=== PATIENT | male | born 1940 | race Caucasian/White ===

== ENCOUNTER 2017-12-10 18:42 | Inpatient (IN) | payer MEDICARE, OTHER ==
[2017-12-10] VITALS (9 sets, daily range): BP systolic 127–157; BP diastolic 60–70; PULSE 46–64; RESP 12–34; TEMP 98.1–99; O2SAT 95–100
[~2017-12-10] VITALS: Ht 170.2 cm; Wt 79.1 kg
--- NOTE | 2017-12-10 19:09 | PD ---
HPI Chief Complaint: Altered Mental Status Time Seen by Provider: 18:53 Travel History International Travel<30 days: No Contact w/Intl Traveler<30days: No Traveled to known affect area: No History of Present Illness HPI 77-year-old male presents to the emergency department via EMS for AMS. According to EMS, the patient was recently discharged from the hospital and was just restarted back on his chronic pain medications today including morphine and Percocet. According to EMS, he was admitted for medication overdose and was off his medications until today. I am unsure where he was admitted to. According to EMS, when awakened, he does answer questions appropriately. Family apparently arrived at the facility and wanted him transferred due to being lethargic. Moderate severity. PFSH Past Medical History Atrial Fibrillation: Yes Cancer: Yes (LUNG) Cardiovascular Problems: Yes (NSTEMI) COPD: Yes Dementia: Yes Diabetes: No Hypertension: Yes Medical other: Yes (CHRONIC PAIN) Pneumonia: Yes Tetanus Vaccination: Unknown Influenza Vaccination: No Past Surgical History Surgical History: Unable to Obtain Social History Alcohol Use: No Tobacco Use: No Substance Use: No Allergies-Medications (Allergen,Severity, Reaction): Coded Allergies: No Known Allergies (Verified Allergy, Unknown, 12/10/17) Reported Meds & Prescriptions Reported Meds & Active Scripts Active Reported Nitroglycerin SL (Nitroglycerin) 0.4 Mg Subl 0.4 Mg SL DIRECTED PRN ONE TABLET UNDER THE TONGUE NEEDED FOR CHEST PAIN, MAY REPEAT EVERY FIVE MINUTES FOR A TOTAL OF 3 DOSES OR CALL 911 IF NO RELIEF Ventolin Hfa 18 GM Inh (Albuterol Sulfate) 90 Mcg/Act Aer 2 Puff INH Q4-6H PRN Ms Contin (Morphine Sulfate) 15 Mg Tab 60 Mg PO BID Gabapentin 300 Mg Cap 300 Mg PO BID Cipro (Ciprofloxacin HCl) 500 Mg Tab 500 Mg PO BID Symbicort Inh (Budesonide/Formoterol Fumarate) 160-4.5 Mcg/Act Aero 2 Puff INH Q12HR Baclofen 20 Mg Tab 20 Mg PO BID Amiodarone (Amiodarone HCl) 200 Mg Tab 200 Mg PO BID Furosemide 40 Mg Tab 40 Mg PO BID Atorvastatin (Atorvastatin Calcium) 10 Mg Tab 10 Mg PO HS Colace (Docusate Sodium) 100 Mg Capsule 100 Mg PO BID Spiriva Handihaler (Tiotropium Inh) 18 Mcg Cap 18 Mcg INH DAILY 1 capsule = 18 mcg Miralax Powder (Polyethylene Glycol 3350 Powder) 17 Gm Powd 17 Gm PO DAILY Mix and dissolve one measuring cap-ful (17 grams) in water or juice. Namenda (Memantine) 10 Mg Tab 10 Mg PO DAILY Meloxicam 15 Mg Tab 15 Mg PO DAILY Amlodipine (Amlodipine Besylate) 5 Mg Tab 5 Mg PO DAILY Review of Systems Except as stated in HPI: all other systems reviewed are Neg Physical Exam Narrative GENERAL: Well-nourished, well-developed male patient, afebrile. Patient is lethargic, moans to noxious stimuli. SKIN: Focused skin assessment warm/dry. HEAD: Normocephalic. Atraumatic. EYES: No scleral icterus. No injection or drainage. Pupils 2mm, reactive NECK: Supple, trachea midline. No JVD or lymphadenopathy. CARDIOVASCULAR: Regular rate and rhythm without murmurs, gallops, or rubs. RESPIRATORY: Breath sounds equal bilaterally. No accessory muscle use. Lung sounds clear to auscultation. GASTROINTESTINAL: Abdomen soft, non-tender, nondistended. MUSCULOSKELETAL: No cyanosis, or edema. BACK: Nontender without obvious deformity. No CVA tenderness. Data Data Last Documented VS Vital Signs Date Time Temp Pulse Resp B/P (MAP) Pulse Ox O2 Delivery O2 Flow Rate FiO2 12/10/17 20:42 61 12 133/60 (84) 100 Nasal Cannula 2.00 12/10/17 18:46 98.1 Orders Orders Electrocardiogram (12/10/17 19:02) Complete Blood Count With Diff (12/10/17 19:02) Comprehensive Metabolic Panel (12/10/17 19:02) Prothrombin Time / Inr (Pt) (12/10/17 19:02) Act Partial Throm Time (Ptt) (12/10/17 19:02) Urinalysis - C+S If Indicated (12/10/17 19:02) Blood Glucose (12/10/17 19:02) Ecg Monitoring (12/10/17 19:02) Iv Access Insert/Monitor (12/10/17 19:02) Oximetry (12/10/17 19:02) Sodium Chloride 0.9% Flush (Ns Flush) (12/10/17 19:15) Naloxone Inj (Narcan Inj) (12/10/17 19:15) Thyroid Stimulating Hormone (12/10/17 19:13) Naloxone Inj (Narcan Inj) (12/10/17 19:45) Naloxone Inj (Narcan Inj) (12/10/17 20:00) Naloxone Inj (Narcan Inj) (12/10/17 20:00) Admit Order (Ed Use Only) (12/10/17 20:56) Labs Laboratory Tests Test 12/10/17 19:15 White Blood Count 10.9 TH/MM3 Red Blood Count 3.50 MIL/MM3 Hemoglobin 12.0 GM/DL Hematocrit 35.6 % Mean Corpuscular Volume 101.6 FL Mean Corpuscular Hemoglobin 34.1 PG Mean Corpuscular Hemoglobin Concent 33.6 % Red Cell Distribution Width 14.1 % Platelet Count 252 TH/MM3 Mean Platelet Volume 9.4 FL Neutrophils (%) (Auto) 76.6 % Lymphocytes (%) (Auto) 11.0 % Monocytes (%) (Auto) 8.5 % Eosinophils (%) (Auto) 3.2 % Basophils (%) (Auto) 0.7 % Neutrophils # (Auto) 8.3 TH/MM3 Lymphocytes # (Auto) 1.2 TH/MM3 Monocytes # (Auto) 0.9 TH/MM3 Eosinophils # (Auto) 0.4 TH/MM3 Basophils # (Auto) 0.1 TH/MM3 CBC Comment DIFF FINAL Differential Comment Prothrombin Time 11.2 SEC Prothromb Time International Ratio 1.1 RATIO Activated Partial Thromboplast Time 25.8 SEC Blood Urea Nitrogen 19 MG/DL Creatinine 1.22 MG/DL Random Glucose 75 MG/DL Total Protein 6.2 GM/DL Albumin 2.5 GM/DL Calcium Level 9.3 MG/DL Alkaline Phosphatase 84 U/L Aspartate Amino Transf (AST/SGOT) 30 U/L Alanine Aminotransferase (ALT/SGPT) 50 U/L Total Bilirubin 0.5 MG/DL Sodium Level 139 MEQ/L Potassium Level 4.7 MEQ/L Chloride Level 106 MEQ/L Carbon Dioxide Level 25.6 MEQ/L Anion Gap 7 MEQ/L Estimat Glomerular Filtration Rate 58 ML/MIN [facility] Medical Decision Making Medical Screen Exam Complete: Yes Emergency Medical Condition: Yes Medical Record Reviewed: Yes Differential Diagnosis opioid overdose vs. electrolyte abnormality vs. UTI Narrative Course 77 year old male presents to the emergency department for evaluation of lethargy after being restarted on his chronic pain medications today. CBC, CMP , PTT, PT/INR, EKG are ordered and pending. Patient is given Narcan 0.4 mg IV. EKG shows sinus bradycardia, HR 47. CBC shows no acute abnormality. CMP shows no acute abnormality. Coags are unremarkable Patient awakened after Narcan 0.4 mg IV. However, he soon became lethargic and not responsive to noxious stimuli. Patient will be given Narcan 0.4 mg IV and started on a Narcan drip. Community Services Officer, Dr. Patricio, accepted admission. Diagnosis Primary Impression: Opioid overdose Qualified Codes: T40.2X1A - Poisoning by other opioids, accidental ( unintentional), initial encounter Additional Impression: Altered mental status Qualified Codes: R41.82 - Altered mental status, unspecified Admitting Information Admitting Physician Requests: Admit Cici Shea December 10, 2017 19:09
[2017-12-10] MEDS ORDERED: SODIUM CHLORIDE 0.9% FLUSH 10 ML FLUSH IV FLUSH PRN (19:15)
[2017-12-10] MEDS ORDERED: NALOXONE HCL 0.4 MG/ML AMP IV PUSH ONE (19:15)
[2017-12-10] MEDS ORDERED: BACL20TA PO (19:36)
[2017-12-10] MEDS ORDERED: AMIO200T PO (19:36)
[2017-12-10] MEDS ORDERED: NITR1SUB3 SL (19:36)
[2017-12-10] MEDS ORDERED: VENTAER INH (19:36)
[2017-12-10] MEDS ORDERED: COLA100C5 PO (19:36)
[2017-12-10] MEDS ORDERED: NAME10TA PO (19:36)
[2017-12-10] MEDS ORDERED: SPIRCAP INH (19:36)
[2017-12-10] MEDS ORDERED: MIRA3350 PO (19:36)
[2017-12-10] MEDS ORDERED: MS C15TA7 PO (19:36)
[2017-12-10] MEDS ORDERED: CIPR-9 PO (19:36)
[2017-12-10] MEDS ORDERED: ATOR10TA15 PO (19:36)
[2017-12-10] MEDS ORDERED: AMLO5TAB2 PO (19:36)
[2017-12-10] MEDS ORDERED: GABA300C5 PO (19:36)
[2017-12-10] MEDS ORDERED: FURO40TA PO (19:36)
[2017-12-10] MEDS ORDERED: MELO15TA20 PO (19:36)
[2017-12-10] MEDS ORDERED: SYMB160A INH (19:36)
[2017-12-10] MEDS ORDERED: NALOXONE HCL 0.4 MG/ML AMP IV PUSH PRN ×2 (19:45→20:00)
[2017-12-10 19:48] LABS: AUTOMATED NEUTROPHIL # 8.3 TH/MM3 (1.8-7.7); BASOPHIL # 0.1 TH/MM3 (0-0.2); BASOPHIL % 0.7 % (0.0-2.0); EOSINOPHIL # 0.4 TH/MM3 (0-0.4); EOSINOPHIL % 3.2 % (0.0-4.0); HEMATOCRIT 35.6 % (39.0-51.0); LYMPHOCYTE # 1.2 TH/MM3 (1.0-4.8); MEAN CELL VOLUME 101.6 FL (80.0-100.0); MEAN CORPUSCULAR HEMOGLOBIN 34.1 PG (27.0-34.0); MEAN CORPUSCULAR HGB CONC 33.6 % (32.0-36.0); MEAN PLATELET VOLUME 9.4 FL (7.0-11.0); MONO % 8.5 % (0.0-8.0); MONOCYTE # 0.9 TH/MM3 (0-0.9); NEUT % 76.6 % (16.0-70.0); PLATELET COUNT 252 TH/MM3 (150-450); RED CELL DISTRIBUTION WIDTH 14.1 % (11.6-17.2); WHITE BLOOD COUNT 10.9 TH/MM3 (4.0-11.0)
--- NOTE | 2017-12-10 19:50 | PD ---
Data Data Last Documented VS Vital Signs Date Time Temp Pulse Resp B/P (MAP) Pulse Ox O2 Delivery O2 Flow Rate FiO2 12/10/17 20:42 61 12 133/60 (84) 100 Nasal Cannula 2.00 12/10/17 18:46 98.1 Orders Orders Electrocardiogram (12/10/17 19:02) Complete Blood Count With Diff (12/10/17 19:02) Comprehensive Metabolic Panel (12/10/17 19:02) Prothrombin Time / Inr (Pt) (12/10/17 19:02) Act Partial Throm Time (Ptt) (12/10/17 19:02) Urinalysis - C+S If Indicated (12/10/17 19:02) Blood Glucose (12/10/17 19:02) Ecg Monitoring (12/10/17 19:02) Iv Access Insert/Monitor (12/10/17 19:02) Oximetry (12/10/17 19:02) Sodium Chloride 0.9% Flush (Ns Flush) (12/10/17 19:15) Naloxone Inj (Narcan Inj) (12/10/17 19:15) Thyroid Stimulating Hormone (12/10/17 19:13) Naloxone Inj (Narcan Inj) (12/10/17 19:45) Naloxone Inj (Narcan Inj) (12/10/17 20:00) Naloxone Inj (Narcan Inj) (12/10/17 20:00) Admit Order (Ed Use Only) (12/10/17 20:56) Labs Laboratory Tests Test 12/10/17 19:15 White Blood Count 10.9 TH/MM3 Red Blood Count 3.50 MIL/MM3 Hemoglobin 12.0 GM/DL Hematocrit 35.6 % Mean Corpuscular Volume 101.6 FL Mean Corpuscular Hemoglobin 34.1 PG Mean Corpuscular Hemoglobin Concent 33.6 % Red Cell Distribution Width 14.1 % Platelet Count 252 TH/MM3 Mean Platelet Volume 9.4 FL Neutrophils (%) (Auto) 76.6 % Lymphocytes (%) (Auto) 11.0 % Monocytes (%) (Auto) 8.5 % Eosinophils (%) (Auto) 3.2 % Basophils (%) (Auto) 0.7 % Neutrophils # (Auto) 8.3 TH/MM3 Lymphocytes # (Auto) 1.2 TH/MM3 Monocytes # (Auto) 0.9 TH/MM3 Eosinophils # (Auto) 0.4 TH/MM3 Basophils # (Auto) 0.1 TH/MM3 CBC Comment DIFF FINAL Differential Comment Prothrombin Time 11.2 SEC Prothromb Time International Ratio 1.1 RATIO Activated Partial Thromboplast Time 25.8 SEC Blood Urea Nitrogen 19 MG/DL Creatinine 1.22 MG/DL Random Glucose 75 MG/DL Total Protein 6.2 GM/DL Albumin 2.5 GM/DL Calcium Level 9.3 MG/DL Alkaline Phosphatase 84 U/L Aspartate Amino Transf (AST/SGOT) 30 U/L Alanine Aminotransferase (ALT/SGPT) 50 U/L Total Bilirubin 0.5 MG/DL Sodium Level 139 MEQ/L Potassium Level 4.7 MEQ/L Chloride Level 106 MEQ/L Carbon Dioxide Level 25.6 MEQ/L Anion Gap 7 MEQ/L Estimat Glomerular Filtration Rate 58 ML/MIN MDM Supervised Visit with RAS: Yes Narrative Course I, Dr. Richards, have reviewed the advance practice practitioner's documentation and am in agreement, met with the patient face to face, made the diagnosis, and the medical decision making was done by me. See her note for further details. Briefly this is a 77-year-old male who was sent in from his long-term for depressed mental status. Currently the patient was admitted to [facility] last week and was discharged yesterday after becoming somnolent from a combination of opiates and muscle relaxant. He had been off of his opiate for about a week, and when he returned to the long-term oxycodone and extended release morphine. Upon arrival to the emergency department the patient was administered 0.4 mg of Narcan with significant improvement in mental status. Shortly afterwards the patient's mental status began to become depressed. He was given another dose of Narcan and was started on a Narcan drip. He will be admitted to the ICU on a Narcan drip. Case discussed with automatic die cutting machine operator Dr. Patricio who will admit the patient to his service. Critical Care Narrative Aggregate critical care time was 35 minutes. Time to perform other separately billable procedures was not included in the critical care time. My time did not include minutes spent treating any other patients simultaneously or on activities that did not directly contribute to the patient's treatment. The services I provided to this patient were to treat and/or prevent clinically significant deterioration that could result in: , permanent disability, acute respiratory failure I provided critical care services requiring my management, as noted below: Chart data review, documentation time, medication orders and management, vital sign assessments/reviewing monitor data, ordering and reviewing lab tests, ordering and interpreting/reviewing x-rays and diagnostic studies, care of the patient and discussion of the patient with the admitting physicians. Diagnosis Primary Impression: Opioid overdose Qualified Codes: T40.2X1A - Poisoning by other opioids, accidental ( unintentional), initial encounter Additional Impression: Altered mental status Qualified Codes: R41.82 - Altered mental status, unspecified Admitting Information Admitting Physician Requests: Admit Angel Richards MD December 10, 2017 19:50
[2017-12-10 19:53] LABS: INTERNATIONAL NORMALIZED RATIO 1.1 RATIO; PROTHROMBIN TIME - PATIENT 11.2 SEC (9.8-11.6)
[2017-12-10 20:02] LABS: ALBUMIN 2.5 GM/DL (3.4-5.0); AST (GOT) 30 U/L (15-37); BICARBONATE 25.6 MEQ/L (21.0-32.0); BLOOD UREA NITROGEN 19 MG/DL (7-18); CALCIUM 9.3 MG/DL (8.5-10.1); CHLORIDE 106 MEQ/L (98-107); CREATININE 1.22 MG/DL (0.60-1.30); GLOMERULAR FILTRATION RATE 58 ML/MIN (>89); GLUCOSE,RANDOM 75 MG/DL (74-106); SODIUM (NA) 139 MEQ/L (136-145)
[2017-12-10 20:04] LABS: ALT (GPT) 50 U/L (12-78)
[2017-12-10 20:05] LABS: ALKALINE PHOSPHATASE 84 U/L (45-117); TOTAL BILIRUBIN ADULT 0.5 MG/DL (0.2-1.0); TOTAL PROTEIN 6.2 GM/DL (6.4-8.2)
[2017-12-10] MEDS: NALOXONE INJ 4 MG in DEXTROSE 5% IN WATER INJ 246 ML IV PRN ×4 (20:22→22:47)
--- NOTE | 2017-12-10 20:59 | HHI.HP ---
[facility] Service Critical Care Medicine Primary Care Physician Claude Powell MD Admission Diagnosis Opioid overdose, AMS Diagnosis: Chief Complaint: altered mental status Travel History International Travel<30 Days: No Contact w/Intl Traveler <30 Da: No Traveled to Known Affected Are: No History of Present Illness This is a 77-year-old male with a history of chronic pain and dementia for which she takes chronic MS Contin. He was reportedly admitted to outside hospital within the last week for a narcotic overdose and was discharged yesterday. He represents by EMS for altered mental status. Apparently he was given additional narcotics at his facility where he resides today. In the emergency department he was given Narcan IV and he awoke and his mental status improved significantly. However, he is on extended release morphine and became somnolent again after the Narcan which required additional doses of Narcan to keep him awake. He was placed on a Narcan infusion. On my arrival to evaluate patient, he is somnolent. He will arouse to voice, but does not answer any questions. He does mumble yes or no at times, but is very poor historian and does not interact with a full history and physical. He very vigorously protect his airway with a very intact cough and gag. He is on nasal cannula oxygen. No additional information is available from the patient due to his mental status. Review of systems is essentially unobtainable. Review of Systems ROS Limitations: Clinical Condition, Altered Mental Status, Uncooperative, Poor Historian Past Family Social History Allergies: Coded Allergies: No Known Allergies (Verified Allergy, Unknown, 12/10/17) Past Medical History Chronic narcotic dependence COPD Lung cancer Atrial fibrillation Prior NSTEMI Hypertension Chronic pain syndrome Dementia Past Surgical History Unknown and unobtainable secondary to clinical condition the patient Reported Medications Nitroglycerin SL (Nitroglycerin) 0.4 Mg Subl 0.4 Mg SL DIRECTED PRN ONE TABLET UNDER THE TONGUE NEEDED FOR CHEST PAIN, MAY REPEAT EVERY FIVE MINUTES FOR A TOTAL OF 3 DOSES OR CALL 911 IF NO RELIEF Ventolin Hfa 18 GM Inh (Albuterol Sulfate) 90 Mcg/Act Aer 2 Puff INH Q4-6H PRN Ms Contin (Morphine Sulfate) 15 Mg Tab 60 Mg PO BID Gabapentin 300 Mg Cap 300 Mg PO BID Cipro (Ciprofloxacin HCl) 500 Mg Tab 500 Mg PO BID Symbicort Inh (Budesonide/Formoterol Fumarate) 160-4.5 Mcg/Act Aero 2 Puff INH Q12HR Baclofen 20 Mg Tab 20 Mg PO BID Amiodarone (Amiodarone HCl) 200 Mg Tab 200 Mg PO BID Furosemide 40 Mg Tab 40 Mg PO BID Atorvastatin (Atorvastatin Calcium) 10 Mg Tab 10 Mg PO HS Colace (Docusate Sodium) 100 Mg Capsule 100 Mg PO BID Spiriva Handihaler (Tiotropium Inh) 18 Mcg Cap 18 Mcg INH DAILY 1 capsule = 18 mcg Miralax Powder (Polyethylene Glycol 3350 Powder) 17 Gm Powd 17 Gm PO DAILY Mix and dissolve one measuring cap-ful (17 grams) in water or juice. Namenda (Memantine) 10 Mg Tab 10 Mg PO DAILY Meloxicam 15 Mg Tab 15 Mg PO DAILY Amlodipine (Amlodipine Besylate) 5 Mg Tab 5 Mg PO DAILY Active Ordered Medications See MAR Family History Unknown unobtainable secondary to clinical condition the patient Social History Per chart review, denies tobacco, EtOH, drugs of abuse. Physical Exam Vital Signs Vital Signs Date Time Temp Pulse Resp B/P (MAP) Pulse Ox O2 Delivery O2 Flow Rate FiO2 12/10/17 20:42 61 12 133/60 (84) 100 Nasal Cannula 2.00 12/10/17 18:53 46 16 140/60 (86) 95 Nasal Cannula 2.00 12/10/17 18:46 98.1 50 14 127/68 (87) 97 Physical Exam GENERAL: Elderly male, lying in bed, legs crossed, somnolent but arousable to voice HEENT: Normocephalic. Atraumatic. Pupils pinpoint, equal, round, reactive, conjugate. Mucous membranes are moist NECK: Trachea is midline. There is no JVD. CHEST: Equal chest rise. 2 L nasal cannula oxygen. CARDIOVASCULAR: Normal rate, at times bradycardic with heart rates in the 50s- 60s. Regular rhythm. Sinus. Blood pressure 130 systolic on my evaluation. ABDOMEN: Soft, nontender, nondistended. No guarding. MUSCULOSKELETAL: Pulses 2+. No peripheral edema. NEUROLOGICAL: RASS -2. Arouses to voice. Does not follow commands. Vigorously protect airway. Positive cough. Positive gag. Briskly purposeful. No focal deficits. Laboratory Laboratory Tests Test 12/10/17 19:15 White Blood Count 10.9 Red Blood Count 3.50 Hemoglobin 12.0 Hematocrit 35.6 Mean Corpuscular Volume 101.6 Mean Corpuscular Hemoglobin 34.1 Mean Corpuscular Hemoglobin Concent 33.6 Red Cell Distribution Width 14.1 Platelet Count 252 Mean Platelet Volume 9.4 Neutrophils (%) (Auto) 76.6 Lymphocytes (%) (Auto) 11.0 Monocytes (%) (Auto) 8.5 Eosinophils (%) (Auto) 3.2 Basophils (%) (Auto) 0.7 Neutrophils # (Auto) 8.3 Lymphocytes # (Auto) 1.2 Monocytes # (Auto) 0.9 Eosinophils # (Auto) 0.4 Basophils # (Auto) 0.1 CBC Comment DIFF FINAL Differential Comment Prothrombin Time 11.2 Prothromb Time International Ratio 1.1 Activated Partial Thromboplast Time 25.8 Blood Urea Nitrogen 19 Creatinine 1.22 Random Glucose 75 Total Protein 6.2 Albumin 2.5 Calcium Level 9.3 Alkaline Phosphatase 84 Aspartate Amino Transf (AST/SGOT) 30 Alanine Aminotransferase (ALT/SGPT) 50 Total Bilirubin 0.5 Sodium Level 139 Potassium Level 4.7 Chloride Level 106 Carbon Dioxide Level 25.6 Anion Gap 7 Estimat Glomerular Filtration Rate 58 Result Diagram: 12/10/17191412/10/171914 Caprini VTE Risk Assessment Caprini VTE Risk Assessment: Mod/High Risk (score >= 2) Caprini Risk Assessment Model Point Value = 1 Point Value = 2 Point Value = 3 Point Value = 5 Age 41-60 Minor surgery BMI > 25 kg/m2 Swollen legs Varicose veins or History of unexplained or recurrent spontaneous Oral contraceptives or hormone replacement Sepsis (< 1 month) Serious lung disease, including pneumonia (< 1 month) Abnormal pulmonary function Acute myocardial infarction Congestive heart failure (< 1 month) History of inflammatory bowel disease Medical patient at bed rest Age 61-74 Arthroscopic surgery Major open surgery (> 45 min) Laparoscopic surgery (> 45 min) Malignancy Confined to bed (> 72 hours) Immobilizing plaster cast Central venous access Age >= 75 History of VTE Family history of VTE Factor V Leiden Prothrombin [id number] Lupus anticoagulant Anticardiolipin antibodies Elevated serum homocysteine Heparin-induced thrombocytopenia Other congenital or acquired thrombophilia Stroke (< 1 month) Elective arthroplasty Hip, pelvis, or leg fracture Acute spinal cord injury (< 1 month) Prophylaxis Regimen Total Risk Factor Score Risk Level Prophylaxis Regimen 0-1 Low Early ambulation 2 Moderate Order ONE of the following: *Sequential Compression Device (SCD) *Heparin 5000 units SQ BID 3-4 Higher Order ONE of the following medications: *Heparin 5000 units SQ TID *Enoxaparin/Lovenox 40 mg SQ daily (WT < 150 kg, CrCl > 30 mL/min) *Enoxaparin/Lovenox 30 mg SQ daily (WT < 150 kg, CrCl > 10-29 mL/min) *Enoxaparin/Lovenox 30 mg SQ BID (WT < 150 kg, CrCl > 30 mL/min) AND/OR *Sequential Compression Device (SCD) 5 or more Highest Order ONE of the following medications: *Heparin 5000 units SQ TID (Preferred with Epidurals) *Enoxaparin/Lovenox 40 mg SQ daily (WT < 150 kg, CrCl > 30 mL/min) *Enoxaparin/Lovenox 30 mg SQ daily (WT < 150 kg, CrCl > 10-29 mL/min) *Enoxaparin/Lovenox 30 mg SQ BID (WT < 150 kg, CrCl > 30 mL/min) AND *Sequential Compression Device (SCD) Assessment and Plan Assessment and Plan Assessment: 77-year-old male with chronic narcotic dependence and chronic pain syndrome with comorbid dementia who was recently admitted for opiate overdose to outside hospital and now presents with recurrent opiate overdose. Given that the patient has comorbid dementia, and given the patient's age, combined with the fact that now he has had 2 episodes of clinical opiate overdose/ toxicity, opiate narcotic medication is contraindicated in this patient. He is having significant side effects which at this point include respiratory depression requiring inpatient hospitalization as well as significant encephalopathy, and given his GFR 58 with a creatinine of 1.2, which would give him stage III CKD, titrating extended release morphine comes with significant risk. I do not think it is safe to continue this patient's opiate medication, and we should consider strongly non-opiate pharmacologic interventions for his pain. I think he should see an outpatient pain specialist with the target of addressing non-opiate modalities of pain control. For his acute admission, he requires naloxone infusion to maintain respiratory status and prevent hypoxic respiratory failure and is thus critically ill requiring immediate intervention to prevent respiratory failure. Active Problems: Opiate Overdose Acute Toxic Encephalopathy Opiate Dependence Chronic pain syndrome Stage III CKD possible [id number] kidney disease superimposed on stage III CKD Dementia Acute respiratory depression secondary to opiate overdose Hypertension COPD Plan: admit to ICU continue narcan infusion urine drug screen tyelnol, aspirin, etoh levels frequent neuro checks swallow eval and advance diet as mental status improves given that he is on 60mg BID of extended release morphine, he may require naloxone infusion for 12 hours or more. restart home amlodipine restart spiriva and nebs Hold home gabapentin discontinue home opiates. discontinue home baclofen Would recommend the following interventions for his chronic pain, as he clinically begins to improve: - restart home gabapentin at 300mg po TID, but increase slowly every 48h to a maximum target of 1800mg/day (900 TID) if tolerated without side effects - Tylenol scheduled for adjuvant pain control, no more than 3gm/day divided q6h or q4h. - avoid NSAIDS given CKD - would recommend discontinuing baclofen as this may compound sedation and worsen respiratory distress - would recommend using tizanidine starting at 2mg po BID and slowly increasing for muscle relaxation as this has chronic pain properties. - if hypertension is a problem, clonidine 0.2mg po BID or TID would be appropriate and can have chronic pain properties as well. This will also help with withdraw symptoms - tramadol 50mg po q8h may be an appropriate alternative for this patient's chronic pain, if he does not have a history of seizure disorder. To manage opiate withdraw symptoms: - clonidine 0.2mg TID - imodium prn for abdominal cramping or diarrhea Demian Lazaro Dispo: admit to ICU. critically ill requiring continuous naloxone infusion. Critical care time: 37 minutes, exclusive of separately billable procedures. Bakari Patricio MD December 10, 2017 20:59
[2017-12-10] MEDS ORDERED: CHLORHEXIDINE GLUCONATE 2 % 1 PACK (2 CLOTHS) TOP PRN (21:00)
[2017-12-10] MEDS: ATORVASTATIN 10 MG TAB PO SCH (21:00)
[2017-12-10] MEDS ORDERED: POTASSIUM CHLORIDE 25 MEQ EFFERVESCENT TAB PO PRN (21:00)
[2017-12-10] MEDS ORDERED: MAGNESIUM OXIDE 400 MG TAB PO PRN (21:00)
[2017-12-10] MEDS: AMIODARONE 200 MG TAB PO SCH (21:00)
[2017-12-10] MEDS ORDERED: MAGNESIUM SULFATE INJ 2 GM in SODIUM CHLORIDE 0.9% INJ 96 ML IV PRN (21:00)
[2017-12-10] MEDS: INSULIN NovoLIN REGULAR SUPPLEMENTAL SCALE SQ SCH (21:00)
[2017-12-10] MEDS ORDERED: RESP: ALBUTEROL 2.5 MG/IPRATROPIUM 0.5 MG NEB (PRN) INH ×2 (21:00)
[2017-12-10] MEDS ORDERED: POTASSIUM CHLOR 40 MEQ PREMIX 100 ML IV PRN ×2 (21:00)
[2017-12-10] MEDS ORDERED: LACTULOSE SYRUP 20 GM/30 ML CUP PO PRN (21:00)
[2017-12-10] MEDS: DOCUSATE SODIUM 50 MG/SENNA 8.6 MG TAB PO SCH (21:00)
[2017-12-10] MEDS ORDERED: POTASSIUM PHOSPHATE MONOBASIC 500 MG TAB PO PRN (21:00)
[2017-12-10] MEDS ORDERED: POTASSIUM PHOSPHATE MONOBASIC 500 MG TAB PO/TUBE PRN (21:00)
[2017-12-10] MEDS ORDERED: SODIUM PHOSPHATE INJ 30 MMOL in SODIUM CHLOR 0.9% 250 ML INJ 240 ML IV PRN (21:00)
[2017-12-10] MEDS: FUROSEMIDE 40 MG TAB PO SCH (21:00)
[2017-12-10] MEDS ORDERED: POTASSIUM CHLOR 20 MEQ PREMIX 100 ML IV PRN (21:00)
[2017-12-10] MEDS ORDERED: BISACODYL 10 MG SUPP RECTAL PRN (21:00)
[2017-12-10] MEDS ORDERED: MAGNESIUM SULFATE INJ 4 GM in SODIUM CHLORIDE 0.9% INJ 92 ML IV PRN (21:00)
[2017-12-10] MEDS ORDERED: NURSING INFORMATION XX SCH (21:00)
[2017-12-10] MEDS ORDERED: POTASSIUM PHOSPHATE INJ 30 MMOL in SODIUM CHLOR 0.9% 250 ML INJ 250 ML IV PRN (21:00)
[2017-12-10] MEDS ORDERED: DEXTROSE 50% IN WATER 50 ML VIAL(D50) IV PUSH PRN (21:00)
[2017-12-10] MEDS ORDERED: SENNOSIDES 8.6 MG TAB PO PRN (21:00)
[2017-12-10] MEDS ORDERED: MAGNESIUM HYDROXIDE SUSP 30 ML CUP PO PRN (21:00)
[2017-12-10] MEDS: RESP: ALBUTEROL 2.5 MG/IPRATROPIUM 0.5 MG NEB (SCH) INH (21:31)
[2017-12-10 22:01] LABS: ACETAMINOPHEN LESS THAN 2.0 MCG/ML (10.0-30.0)
[2017-12-10] MEDS: BUDESONIDE-FORMOTEROL 160/4.5 MCG INHALER INH SCH (22:46)
[2017-12-10] MEDS: ENOXAPARIN SODIUM 40 MG/0.4 ML SYRINGE SQ SCH (22:46)
[2017-12-10 23:07] LABS: BILIRUBIN, URINE NEG (NEG); BLOOD, URINE MOD (NEG); GLUCOSE,URINE NEG (NEG); HYALINE CAST, URINE 15 /lpf (RARE); KETONE, URINE NEG (NEG); MUCUS URINE FEW /lpf (OCC); NITRITE,URINE NEG (NEG); SQUAMOUS EPITHELIAL CELL URINE 3 /hpf (0-5); TRANSITIONAL EPI CELLS, URINE <1 /hpf; URINE COLOR YELLOW (YELLW/STRAW); URINE LEUKOCYTE ESTERASE SMALL (NEG); WAXY CAST, URINE 3 /lpf
[2017-12-11] VITALS (47 sets, daily range): BP systolic 123–174; BP diastolic 59–78; PULSE 55–78; RESP 18–43; TEMP 98–99; O2SAT 90–98
[2017-12-11] MEDS: NALOXONE INJ 4 MG in DEXTROSE 5% IN WATER INJ 246 ML IV PRN ×8 (02:25→10:21)
[2017-12-11] MEDS: INSULIN NovoLIN REGULAR SUPPLEMENTAL SCALE SQ SCH ×5 (03:00→21:00)
[2017-12-11] MEDS: CHLORHEXIDINE GLUCONATE 2 % 1 PACK (2 CLOTHS) TOP SCH (03:12)
[2017-12-11] MEDS: RESP: ALBUTEROL 2.5 MG/IPRATROPIUM 0.5 MG NEB (SCH) INH ×4 (04:13→20:54)
[2017-12-11 05:29] LABS: HEMATOCRIT 35.4 % (39.0-51.0); HEMOGLOBIN 12.2 GM/DL (13.0-17.0); MEAN CELL VOLUME 99.5 FL (80.0-100.0); MEAN CORPUSCULAR HEMOGLOBIN 34.3 PG (27.0-34.0); MEAN CORPUSCULAR HGB CONC 34.5 % (32.0-36.0); MEAN PLATELET VOLUME 9.8 FL (7.0-11.0); PLATELET COUNT 224 TH/MM3 (150-450); RED BLOOD COUNT 3.55 MIL/MM3 (4.50-5.90); RED CELL DISTRIBUTION WIDTH 13.7 % (11.6-17.2)
[2017-12-11 05:54] LABS: BICARBONATE 23.7 MEQ/L (21.0-32.0); CALCIUM 9.1 MG/DL (8.5-10.1); CREATININE 0.78 MG/DL (0.60-1.30)
[2017-12-11] MEDS: TIOTROPIUM BROMIDE 18 MCG INH INH SCH (09:00)
[2017-12-11] MEDS: MEMANTINE HCL 10 MG TAB PO SCH (09:00)
[2017-12-11] MEDS: BUDESONIDE-FORMOTEROL 160/4.5 MCG INHALER INH SCH ×2 (09:00→21:00)
[2017-12-11] MEDS: FUROSEMIDE 40 MG TAB PO SCH ×2 (09:11→22:30)
[2017-12-11] MEDS: amLODIPine BESYLATE 5 MG TAB PO SCH (09:11)
[2017-12-11] MEDS: AMIODARONE 200 MG TAB PO SCH ×2 (09:11→21:00)
[2017-12-11] MEDS: DOCUSATE SODIUM 50 MG/SENNA 8.6 MG TAB PO SCH ×2 (09:11→22:30)
--- NOTE | 2017-12-11 14:10 | EKG ---
Date Performed: 12/10/2017 Time Performed: 19:14:47 PTAGE: 77 years EKG: SINUS BRADYCARDIA RIGHT BUNDLE BRANCH BLOCK LEFT ANTERIOR FASCICULAR BLOCK POSSIBLE SEPTAL MYOCARDIAL INFARCTION ABNORMAL ECG NO PREVIOUS TRACING DOCTOR: Keven Rangel Interpretating Date/Time 12/13/2017 07:46:48
--- NOTE | 2017-12-11 17:38 | HHI.CCPN ---
Subjective Remarks/Hospital Course This is a 77-year-old male with a history of chronic pain and dementia for which she takes chronic MS Contin. He was reportedly admitted to outside hospital within the last week for a narcotic overdose and was discharged yesterday. He represents by EMS for altered mental status. Apparently he was given additional narcotics at his facility where he resides today. In the emergency department he was given Narcan IV and he awoke and his mental status improved significantly. However, he is on extended release morphine and became somnolent again after the Narcan which required additional doses of Narcan to keep him awake. He was placed on a Narcan infusion. On my arrival to evaluate patient, he is somnolent. He will arouse to voice, but does not answer any questions. He does mumble yes or no at times, but is very poor historian and does not interact with a full history and physical. He very vigorously protect his airway with a very intact cough and gag. He is on nasal cannula oxygen. No additional information is available from the patient due to his mental status. Review of systems is essentially unobtainable. Subjective: 12/11: Late entry note. Patient seen at 6:30 AM. Reviewed this evening patient now alert awake oriented following commands in no apparent distress. Narcan drip discontinued. Discussed with family events are rounding patient's overdose of narcotics in the longterm facility . Will advance patient's diet to mechanical soft regular diet this p.m.. Objective Vital Signs Date Time Temp Pulse Resp B/P (MAP) Pulse Ox O2 Delivery O2 Flow Rate FiO2 12/11/17 16:00 98.0 75 22 133/63 (86) 98 12/11/17 08:10 Nasal Cannula 3.00 Intake and Output 12/11/17 12/11/17 12/12/17 08:00 16:00 00:00 Intake Total 484 ml 100 ml Output Total 850 ml Balance -366 ml 100 ml Result Diagram: 12/11/17 04212/11/17 042 Objective Remarks GENERAL: Elderly male, lying in bed, legs crossed, somnolent but arousable to voice HEENT: Normocephalic. Atraumatic. Pupils pinpoint, equal, round, reactive, conjugate. Mucous membranes are moist NECK: Trachea is midline. There is no JVD. CHEST: Equal chest rise. 2 L nasal cannula oxygen. CARDIOVASCULAR: Normal rate, at times bradycardic with heart rates in the 50s- 60s. Regular rhythm. Sinus. Blood pressure 130 systolic on my evaluation. ABDOMEN: Soft, nontender, nondistended. No guarding. MUSCULOSKELETAL: Pulses 2+. No peripheral edema. NEUROLOGICAL: RASS -2. Arouses to voice. Does not follow commands. Vigorously protect airway. Positive cough. Positive gag. Briskly purposeful. No focal deficits. A/P Assessment and Plan Assessment: 77-year-old male with chronic narcotic dependence and chronic pain syndrome with comorbid dementia who was recently admitted for opiate overdose to outside hospital and now presents with recurrent opiate overdose. Given that the patient has comorbid dementia, and given the patient's age, combined with the fact that now he has had 2 episodes of clinical opiate overdose/ toxicity, opiate narcotic medication is contraindicated in this patient. He is having significant side effects which at this point include respiratory depression requiring inpatient hospitalization as well as significant encephalopathy, and given his GFR 58 with a creatinine of 1.2, which would give him stage III CKD, titrating extended release morphine comes with significant risk. I do not think it is safe to continue this patient's opiate medication, and we should consider strongly non-opiate pharmacologic interventions for his pain. I think he should see an outpatient pain specialist with the target of addressing non-opiate modalities of pain control. For his acute admission, he requires naloxone infusion to maintain respiratory status and prevent hypoxic respiratory failure and is thus critically ill requiring immediate intervention to prevent respiratory failure. Active Problems: Opiate Overdose Acute Toxic Encephalopathy Opiate Dependence Chronic pain syndrome Stage III CKD possible [id number] kidney disease superimposed on stage III CKD Dementia Acute respiratory depression secondary to opiate overdose Hypertension COPD Plan: Discontinued Narcan infusion 1729 urine drug screen Consider Ofirmev 1 g every 6 hours as needed 48 hours for pain control frequent neuro checks advance diet mechanical soft regular diet Patient passed bedside swallow restart home amlodipine restart spiriva and nebs Hold home gabapentin discontinue home opiates. discontinue home baclofen Would recommend the following interventions for his chronic pain, as he clinically begins to improve: - restart home gabapentin at 300mg po TID, but increase slowly every 48h to a maximum target of 1800mg/day (900 TID) if tolerated without side effects - Tylenol scheduled for adjuvant pain control, no more than 3gm/day divided q6h or q4h. - avoid NSAIDS given CKD - would recommend discontinuing baclofen as this may compound sedation and worsen respiratory distress - would recommend using tizanidine starting at 2mg po BID and slowly increasing for muscle relaxation as this has chronic pain properties. - if hypertension is a problem, clonidine 0.2mg po BID or TID would be appropriate and can have chronic pain properties as well. This will also help with withdraw symptoms - tramadol 50mg po q8h may be an appropriate alternative for this patient's chronic pain, if he does not have a history of seizure disorder. To manage opiate withdraw symptoms: - clonidine 0.2mg TID - imodium prn for abdominal cramping or diarrhea Lovenox, SCDs Level 2 follow up. [facility] Plan transfer to [facility] floor when bed available Physician Margret Gudino MD December 11, 2017 17:38
[2017-12-11] MEDS: ENOXAPARIN SODIUM 40 MG/0.4 ML SYRINGE SQ SCH (22:30)
[2017-12-11] MEDS: ATORVASTATIN 10 MG TAB PO SCH (22:30)
[2017-12-12] VITALS (29 sets, daily range): BP systolic 117–187; BP diastolic 56–74; PULSE 61–84; RESP 17–40; TEMP 97.9–98.5; O2SAT 94–99
[2017-12-12] MEDS: ACETAMINOPHEN 325 MG TAB PO PRN ×2 (01:29→09:40)
[2017-12-12] MEDS: RESP: ALBUTEROL 2.5 MG/IPRATROPIUM 0.5 MG NEB (SCH) INH ×4 (02:07→21:39)
[2017-12-12] MEDS: INSULIN NovoLIN REGULAR SUPPLEMENTAL SCALE SQ SCH ×5 (03:00→20:42)
[2017-12-12] MEDS: CHLORHEXIDINE GLUCONATE 2 % 1 PACK (2 CLOTHS) TOP SCH (04:00)
[2017-12-12 07:35] LABS: BICARBONATE 23.6 MEQ/L (21.0-32.0); CALCIUM 8.9 MG/DL (8.5-10.1); CREATININE 0.71 MG/DL (0.60-1.30)
[2017-12-12 08:08] LABS: HEMATOCRIT 37.4 % (39.0-51.0); HEMOGLOBIN 12.8 GM/DL (13.0-17.0); MEAN CELL VOLUME 100.1 FL (80.0-100.0); MEAN CORPUSCULAR HEMOGLOBIN 34.2 PG (27.0-34.0); MEAN CORPUSCULAR HGB CONC 34.2 % (32.0-36.0); MEAN PLATELET VOLUME 9.1 FL (7.0-11.0); PLATELET COUNT 284 TH/MM3 (150-450); RED BLOOD COUNT 3.74 MIL/MM3 (4.50-5.90); RED CELL DISTRIBUTION WIDTH 13.8 % (11.6-17.2); WHITE BLOOD COUNT 8.9 TH/MM3 (4.0-11.0)
[2017-12-12] MEDS: FUROSEMIDE 40 MG TAB PO SCH ×2 (08:56→20:42)
[2017-12-12] MEDS: MEMANTINE HCL 10 MG TAB PO SCH (08:56)
[2017-12-12] MEDS: AMIODARONE 200 MG TAB PO SCH ×2 (08:56→20:41)
[2017-12-12] MEDS: amLODIPine BESYLATE 5 MG TAB PO SCH (08:56)
[2017-12-12] MEDS: DOCUSATE SODIUM 50 MG/SENNA 8.6 MG TAB PO SCH ×2 (08:56→20:41)
[2017-12-12] MEDS: BUDESONIDE-FORMOTEROL 160/4.5 MCG INHALER INH SCH ×2 (08:57→20:43)
[2017-12-12] MEDS: POTASSIUM CHLOR 20 MEQ PREMIX 100 ML IV PRN ×2 (08:57→17:09)
--- NOTE | 2017-12-12 15:27 | HHI.PR ---
Subjective Remarks Resting in bed comfortably On O2 nasal cannula Stated he feels fine Is asking for his narcotic Objective Vitals Vital Signs Date Time Temp Pulse Resp B/P (MAP) Pulse Ox O2 Delivery O2 Flow Rate FiO2 12/12/17 15:00 70 22 151/67 (95) 96 12/12/17 14:00 71 19 143/66 (91) 96 12/12/17 14:00 71 12/12/17 13:00 61 19 147/67 (93) 94 12/12/17 12:00 65 12/12/17 12:00 98.5 65 17 148/68 (94) 99 12/12/17 11:00 79 19 144/63 (90) 95 12/12/17 10:01 79 23 126/62 (83) 95 12/12/17 10:00 79 12/12/17 10:00 79 24 95 12/12/17 09:00 74 19 155/72 (99) 95 12/12/17 08:39 95 Nasal Cannula 3.00 12/12/17 08:01 98.5 75 21 131/64 (86) 94 12/12/17 08:00 75 12/12/17 07:01 66 35 176/72 (106) 96 12/12/17 06:01 73 33 117/56 (76) 95 12/12/17 06:00 72 12/12/17 05:01 68 28 152/68 (96) 98 12/12/17 04:01 98.2 69 29 179/73 (108) 99 12/12/17 04:00 70 12/12/17 03:01 77 32 129/62 (84) 96 12/12/17 02:00 78 12/12/17 02:00 66 36 175/74 (107) 96 12/12/17 01:01 74 28 127/74 (91) 95 12/12/17 00:01 66 32 187/74 (111) 98 12/12/17 00:00 71 12/12/17 00:00 98.0 68 22 187/74 (111) 98 12/11/17 22:00 68 12/11/17 20:52 96 Nasal Cannula 3.00 12/11/17 20:00 68 12/11/17 20:00 98.2 74 18 128/59 (82) 95 12/11/17 18:15 77 22 97 12/11/17 18:00 64 12/11/17 18:00 68 22 147/67 (93) 95 12/11/17 17:45 74 22 94 12/11/17 17:30 78 22 92 12/11/17 17:15 75 20 90 12/11/17 17:00 75 22 139/64 (89) 90 12/11/17 17:00 98.0 75 22 147/66 (93) 98 12/11/17 16:00 98.0 75 22 133/63 (86) 98 12/11/17 16:00 64 I/O 12/11/17 12/11/17 12/11/17 12/12/17 12/12/17 12/12/17 06:59 14:59 22:59 06:59 14:59 22:59 Intake Total 484 ml 100 ml 100 ml Output Total 850 ml 900 ml 550 ml Balance -366 ml 100 ml -900 ml -450 ml Intake Oral 100 ml IV Total 484 ml 100 ml Output Urine Total 850 ml 900 ml 550 ml # Bowel Movements 4 3 0 Result Diagram: 12/12/1740 12/12/1740 Objective Remarks GENERAL: This is a well-nourished, well-developed patient, in no apparent distress. CARDIOVASCULAR: RRR, no gallops, or rubs. RESPIRATORY: Fair air entry bilaterally. No W, R, or R GASTROINTESTINAL: Abdomen soft, non-tender, nondistended. Positive bowel sounds MUSCULOSKELETAL: Extremities without clubbing, cyanosis, or edema. Pedal pulses appreciated NEUROLOGICAL: Awake and alert. Moves all extremity. Normal speech.no focal neurological deficit A/P Assessment and Plan Assessment: 77-year-old male with chronic narcotic dependence and chronic pain syndrome with comorbid dementia who was recently admitted for opiate overdose to outside hospital and now presents with recurrent opiate overdose. Given that the patient has comorbid dementia, and given the patient's age, combined with the fact that now he has had 2 episodes of clinical opiate overdose/ toxicity, opiate narcotic medication is contraindicated in this patient. He is having significant side effects which at this point include respiratory depression requiring inpatient hospitalization as well as significant encephalopathy, and given his GFR 58 with a creatinine of 1.2, which would give him stage III CKD, titrating extended release morphine comes with significant risk. it is mostly unsafe to continue this patient's opiate medication, and we should consider strongly non-opiate pharmacologic interventions for his pain . I think he should see an outpatient pain specialist with the target of addressing non-opiate modalities of pain control. For his acute admission, he requires naloxone infusion to maintain respiratory status and prevent hypoxic respiratory failure and is thus critically ill requiring immediate intervention to prevent respiratory failure. 12/12: Continue monitoring off opioid, will add ibuprofen with gabapentin, monitor closely for any signs of withdrawal A/P Opiate Overdose Acute Toxic Encephalopathy Opiate Dependence Chronic pain syndrome Stage III CKD possible [id number] kidney disease superimposed on stage III CKD Dementia Acute respiratory depression secondary to opiate overdose Hypertension COPD Plan: Discontinued Narcan infusion 1729 urine drug screen Consider Ofirmev 1 g every 6 hours as needed 48 hours for pain control frequent neuro checks advance diet mechanical soft regular diet Patient passed bedside swallow restart home amlodipine restart spiriva and nebs Hold home gabapentin discontinue home opiates. discontinue home baclofen Would recommend the following interventions for his chronic pain, as he clinically begins to improve: - restart home gabapentin at 300mg po TID, but increase slowly every 48h to a maximum target of 1800mg/day (900 TID) if tolerated without side effects - Tylenol scheduled for adjuvant pain control, no more than 3gm/day divided q6h or q4h. - avoid NSAIDS given CKD - would recommend discontinuing baclofen as this may compound sedation and worsen respiratory distress - would recommend using tizanidine starting at 2mg po BID and slowly increasing for muscle relaxation as this has chronic pain properties. - if hypertension is a problem, clonidine 0.2mg po BID or TID would be appropriate and can have chronic pain properties as well. This will also help with withdraw symptoms - tramadol 50mg po q8h may be an appropriate alternative for this patient's chronic pain, if he does not have a history of seizure disorder. To manage opiate withdraw symptoms: - clonidine 0.2mg TID - imodium prn for abdominal cramping or diarrhea Maile Nunez MD December 12, 2017 15:27
[2017-12-12] MEDS: ATORVASTATIN 10 MG TAB PO SCH (20:42)
[2017-12-12] MEDS: ENOXAPARIN SODIUM 40 MG/0.4 ML SYRINGE SQ SCH (20:43)
[2017-12-12] MEDS ORDERED: IBUPROFEN 600 MG TAB PO ONE (22:15)
[2017-12-13] VITALS (11 sets, daily range): BP systolic 120–140; BP diastolic 59–72; PULSE 63–81; RESP 18–20; TEMP 97.6–99.3; O2SAT 95–99
[2017-12-13] MEDS: ACETAMINOPHEN 325 MG TAB PO PRN ×5 (01:27→23:28)
[2017-12-13] MEDS: INSULIN NovoLIN REGULAR SUPPLEMENTAL SCALE SQ SCH ×5 (02:59→21:00)
[2017-12-13] MEDS: CHLORHEXIDINE GLUCONATE 2 % 1 PACK (2 CLOTHS) TOP SCH ×2 (03:00→21:05)
[2017-12-13] MEDS: RESP: ALBUTEROL 2.5 MG/IPRATROPIUM 0.5 MG NEB (SCH) INH ×4 (03:04→22:00)
[2017-12-13 08:29] LABS: HEMOGLOBIN 12.3 GM/DL (13.0-17.0); MEAN CELL VOLUME 99.7 FL (80.0-100.0); MEAN CORPUSCULAR HEMOGLOBIN 33.9 PG (27.0-34.0); MEAN PLATELET VOLUME 9.2 FL (7.0-11.0); PLATELET COUNT 274 TH/MM3 (150-450); RED BLOOD COUNT 3.61 MIL/MM3 (4.50-5.90); RED CELL DISTRIBUTION WIDTH 13.8 % (11.6-17.2); WHITE BLOOD COUNT 7.6 TH/MM3 (4.0-11.0)
[2017-12-13] MEDS: MEMANTINE HCL 10 MG TAB PO SCH (08:41)
[2017-12-13] MEDS: DOCUSATE SODIUM 50 MG/SENNA 8.6 MG TAB PO SCH ×2 (08:41→21:08)
[2017-12-13] MEDS: BUDESONIDE-FORMOTEROL 160/4.5 MCG INHALER INH SCH ×2 (08:41→21:00)
[2017-12-13] MEDS: FUROSEMIDE 40 MG TAB PO SCH ×2 (08:42→21:08)
[2017-12-13] MEDS: amLODIPine BESYLATE 5 MG TAB PO SCH (08:42)
[2017-12-13] MEDS: AMIODARONE 200 MG TAB PO SCH ×2 (08:42→21:08)
[2017-12-13] MEDS: TIOTROPIUM BROMIDE 18 MCG INH INH SCH ×2 (09:00→09:31)
[2017-12-13 09:05] LABS: BICARBONATE 22.5 MEQ/L (21.0-32.0); CALCIUM 8.8 MG/DL (8.5-10.1); CREATININE 0.76 MG/DL (0.60-1.30)
[2017-12-13] MEDS: IBUPROFEN 400 MG TAB PO PRN ×2 (15:30→21:08)
--- NOTE | 2017-12-13 15:45 | HHI.PR ---
Subjective Remarks [facility] He is very concerned about not having narcotics he does not want to be on other medication I extensively explained to him the need to be away from opioid and replace it with other non-opioid pain medication Objective Vitals Vital Signs Date Time Temp Pulse Resp B/P (MAP) Pulse Ox O2 Delivery O2 Flow Rate FiO2 12/13/17 11:12 97.6 74 20 140/60 (86) 98 12/13/17 10:43 Nasal Cannula 2.00 12/13/17 08:51 74 12/13/17 08:19 98.7 75 20 139/63 (88) 96 12/13/17 05:11 98.1 71 18 128/72 (90) 97 12/13/17 04:00 63 12/13/17 00:28 98.3 74 20 134/72 (92) 97 12/13/17 00:00 81 12/12/17 22:20 65 12/12/17 21:41 99 Nasal Cannula 3.00 12/12/17 20:59 97.9 73 22 141/63 (89) 98 12/12/17 18:00 72 12/12/17 18:00 72 23 129/59 (82) 97 12/12/17 17:01 84 40 151/65 (93) 96 12/12/17 16:00 78 12/12/17 16:00 98.3 78 34 153/58 (89) 95 I/O 12/12/17 12/12/17 12/12/17 12/13/17 12/13/17 12/13/17 07:00 15:00 23:00 07:00 15:00 23:00 Intake Total 200 ml 480 ml Output Total 550 ml 1175 ml 150 ml Balance -350 ml -695 ml -150 ml Intake Oral 100 ml 480 ml IV Total 100 ml Output Urine Total 550 ml 1175 ml 150 ml # Voids 1 # Bowel Movements 0 1 Result Diagram: 12/13/1752612/13/17526 Objective Remarks GENERAL: This is a well-nourished, well-developed patient, in no apparent distress. CARDIOVASCULAR: RRR, no gallops, or rubs. RESPIRATORY: Fair air entry bilaterally. No W, R, or R GASTROINTESTINAL: Abdomen soft, non-tender, nondistended. Positive bowel sounds MUSCULOSKELETAL: Extremities without clubbing, cyanosis, or edema. Pedal pulses appreciated NEUROLOGICAL: Awake and alert. Moves all extremity. Normal speech.no focal neurological deficit A/P Assessment and Plan Assessment: 77-year-old male with chronic narcotic dependence and chronic pain syndrome with comorbid dementia who was recently admitted for opiate overdose to outside hospital and now presents with recurrent opiate overdose. Given that the patient has comorbid dementia, and given the patient's age, combined with the fact that now he has had 2 episodes of clinical opiate overdose/ toxicity, opiate narcotic medication is contraindicated in this patient. He is having significant side effects which at this point include respiratory depression requiring inpatient hospitalization as well as significant encephalopathy, and given his GFR 58 with a creatinine of 1.2, which would give him stage III CKD, titrating extended release morphine comes with significant risk. it is mostly unsafe to continue this patient's opiate medication, and we should consider strongly non-opiate pharmacologic interventions for his pain . I think he should see an outpatient pain specialist with the target of addressing non-opiate modalities of pain control. For his acute admission, he requires naloxone infusion to maintain respiratory status and prevent hypoxic respiratory failure and is thus critically ill requiring immediate intervention to prevent respiratory failure. 12/12: Continue monitoring off opioid, will add ibuprofen with gabapentin, monitor closely for any signs of withdrawal 12/13: Wean down oxygen, start PT OT, will continue monitoring if stable will discharge in a.m., patient will need referral for pain management clinic A/P Opiate Overdose Acute Toxic Encephalopathy Opiate Dependence Chronic pain syndrome Stage III CKD possible [id number] kidney disease superimposed on stage III CKD Dementia Acute respiratory depression secondary to opiate overdose Hypertension COPD Plan: Discontinued Narcan infusion 1730 urine drug screen Consider Ofirmev 1 g every 6 hours as needed 48 hours for pain control frequent neuro checks advance diet mechanical soft regular diet Patient passed bedside swallow restart home amlodipine restart spiriva and nebs Hold home gabapentin discontinue home opiates. discontinue home baclofen Would recommend the following interventions for his chronic pain, as he clinically begins to improve: - restart home gabapentin at 300mg po TID, but increase slowly every 48h to a maximum target of 1800mg/day (900 TID) if tolerated without side effects - Tylenol scheduled for adjuvant pain control, no more than 3gm/day divided q6h or q4h. - avoid NSAIDS given CKD - would recommend discontinuing baclofen as this may compound sedation and worsen respiratory distress - would recommend using tizanidine starting at 2mg po BID and slowly increasing for muscle relaxation as this has chronic pain properties. - if hypertension is a problem, clonidine 0.2mg po BID or TID would be appropriate and can have chronic pain properties as well. This will also help with withdraw symptoms - tramadol 50mg po q8h may be an appropriate alternative for this patient's chronic pain, if he does not have a history of seizure disorder. To manage opiate withdraw symptoms: - clonidine 0.2mg TID - imodium prn for abdominal cramping or diarrhea Discharge Planning In a.m. if stable no opioid withdrawal signs Maile Nunez MD Dec 13, 2017 15:45
[2017-12-13] MEDS: ENOXAPARIN SODIUM 40 MG/0.4 ML SYRINGE SQ SCH (21:08)
[2017-12-13] MEDS: ATORVASTATIN 10 MG TAB PO SCH (21:08)
[2017-12-14] VITALS (10 sets, daily range): BP systolic 120–147; BP diastolic 55–68; PULSE 72–77; RESP 16–20; TEMP 98–99; O2SAT 94–98
[2017-12-14] MEDS: INSULIN NovoLIN REGULAR SUPPLEMENTAL SCALE SQ SCH ×5 (03:00→21:00)
[2017-12-14] MEDS: IBUPROFEN 400 MG TAB PO PRN ×5 (03:13→23:41)
[2017-12-14] MEDS: RESP: ALBUTEROL 2.5 MG/IPRATROPIUM 0.5 MG NEB (SCH) INH ×4 (03:54→19:21)
[2017-12-14 05:46] LABS: MEAN CELL VOLUME 98.4 FL (80.0-100.0); MEAN CORPUSCULAR HEMOGLOBIN 33.8 PG (27.0-34.0); MEAN CORPUSCULAR HGB CONC 34.3 % (32.0-36.0); MEAN PLATELET VOLUME 8.7 FL (7.0-11.0); PLATELET COUNT 286 TH/MM3 (150-450); RED BLOOD COUNT 3.86 MIL/MM3 (4.50-5.90); RED CELL DISTRIBUTION WIDTH 13.6 % (11.6-17.2); WHITE BLOOD COUNT 7.7 TH/MM3 (4.0-11.0)
[2017-12-14 06:06] LABS: BICARBONATE 24.5 MEQ/L (21.0-32.0); CALCIUM 9.1 MG/DL (8.5-10.1); CREATININE 1.1 MG/DL (0.60-1.30)
[2017-12-14] MEDS: ACETAMINOPHEN 325 MG TAB PO PRN ×3 (06:49→15:55)
[2017-12-14] MEDS: MEMANTINE HCL 10 MG TAB PO SCH (08:02)
[2017-12-14] MEDS: DOCUSATE SODIUM 50 MG/SENNA 8.6 MG TAB PO SCH ×2 (08:03→20:20)
[2017-12-14] MEDS: AMIODARONE 200 MG TAB PO SCH ×2 (08:03→20:20)
[2017-12-14] MEDS: FUROSEMIDE 40 MG TAB PO SCH ×2 (08:03→20:19)
[2017-12-14] MEDS: amLODIPine BESYLATE 5 MG TAB PO SCH (08:03)
[2017-12-14] MEDS: BUDESONIDE-FORMOTEROL 160/4.5 MCG INHALER INH SCH ×2 (08:09→20:19)
[2017-12-14] MEDS: TIOTROPIUM BROMIDE 18 MCG INH INH SCH (08:09)
--- NOTE | 2017-12-14 15:34 | HHI.PR ---
Subjective Remarks Resting in bed no signs of opioid withdrawal Still on 1 L nasal cannula will wean that down and doing a walk test PT OT to eval for discharge recommendation Patient lives alone but he has family and friends comes to check on him Objective Vitals Vital Signs Date Time Temp Pulse Resp B/P (MAP) Pulse Ox O2 Delivery O2 Flow Rate FiO2 12/14/17 12:00 98.0 76 16 132/60 (84) 98 12/14/17 11:41 19 12/14/17 10:21 94 Nasal Cannula 1.00 12/14/17 08:00 77 12/14/17 08:00 98.5 76 19 139/63 (88) 94 12/14/17 07:49 19 12/14/17 04:28 98.2 75 20 147/68 (94) 98 12/14/17 03:55 95 Nasal Cannula 1.00 12/14/17 00:47 99.0 72 20 146/65 (92) 97 12/13/17 20:39 97.7 77 20 120/59 (79) 95 12/13/17 17:03 68 12/13/17 16:27 99.3 69 20 135/60 (85) 99 I/O 12/13/17 12/13/17 12/13/17 12/14/17 12/14/17 12/14/17 07:00 15:00 23:00 07:00 15:00 23:00 Intake Total 1200 ml Output Total 150 ml 500 ml Balance -150 ml 1200 ml -500 ml Intake Oral 1200 ml Output Urine Total 150 ml 500 ml # Voids 3 2 # Bowel Movements 1 Result Diagram: 12/14/17 0524 12/14/17 0524 Objective Remarks GENERAL: This is a well-nourished, well-developed patient, in no apparent distress. CARDIOVASCULAR: RRR, no gallops, or rubs. RESPIRATORY: Fair air entry bilaterally. No W, R, or R GASTROINTESTINAL: Abdomen soft, non-tender, nondistended. Positive bowel sounds MUSCULOSKELETAL: Extremities without clubbing, cyanosis, or edema. Pedal pulses appreciated NEUROLOGICAL: Awake and alert. Moves all extremity. Normal speech.no focal neurological deficit A/P Assessment and Plan Assessment: 77-year-old male with chronic narcotic dependence and chronic pain syndrome with comorbid dementia who was recently admitted for opiate overdose to outside hospital and now presents with recurrent opiate overdose. Given that the patient has comorbid dementia, and given the patient's age, combined with the fact that now he has had 2 episodes of clinical opiate overdose/ toxicity, opiate narcotic medication is contraindicated in this patient. He is having significant side effects which at this point include respiratory depression requiring inpatient hospitalization as well as significant encephalopathy, and given his GFR 58 with a creatinine of 1.2, which would give him stage III CKD, titrating extended release morphine comes with significant risk. it is mostly unsafe to continue this patient's opiate medication, and we should consider strongly non-opiate pharmacologic interventions for his pain . I think he should see an outpatient pain specialist with the target of addressing non-opiate modalities of pain control. For his acute admission, he requires naloxone infusion to maintain respiratory status and prevent hypoxic respiratory failure and is thus critically ill requiring immediate intervention to prevent respiratory failure. 12/12: Continue monitoring off opioid, will add ibuprofen with gabapentin, monitor closely for any signs of withdrawal 12/13: Wean down oxygen, start PT OT, will continue monitoring if stable will discharge in a.m., patient will need referral for pain management clinic 12/14: Stable, will check O2 walking test, PT OT to [facility] for discharge recommendation they recommended home health with 24-hour supervision, will discharge patient today if pass O2 walking test A/P Opiate Overdose Acute Toxic Encephalopathy Opiate Dependence Chronic pain syndrome Stage III CKD possible [id number] kidney disease superimposed on stage III CKD Dementia Acute respiratory depression secondary to opiate overdose Hypertension COPD Plan: Discontinued Narcan infusion 1730 urine drug screen Consider Ofirmev 1 g every 6 hours as needed 48 hours for pain control frequent neuro checks advance diet mechanical soft regular diet Patient passed bedside swallow restart home amlodipine restart spiriva and nebs Hold home gabapentin discontinue home opiates. discontinue home baclofen Would recommend the following interventions for his chronic pain, as he clinically begins to improve: - restart home gabapentin at 300mg po TID, but increase slowly every 48h to a maximum target of 1800mg/day (900 TID) if tolerated without side effects - Tylenol scheduled for adjuvant pain control, no more than 3gm/day divided q6h or q4h. - avoid NSAIDS given CKD - would recommend discontinuing baclofen as this may compound sedation and worsen respiratory distress - would recommend using tizanidine starting at 2mg po BID and slowly increasing for muscle relaxation as this has chronic pain properties. - if hypertension is a problem, clonidine 0.2mg po BID or TID would be appropriate and can have chronic pain properties as well. This will also help with withdraw symptoms - tramadol 50mg po q8h may be an appropriate alternative for this patient's chronic pain, if he does not have a history of seizure disorder. To manage opiate withdraw symptoms: - clonidine 0.2mg TID - imodium prn for abdominal cramping or diarrhea Discharge Planning In a.m. if stable no opioid withdrawal signs Maile Nunez MD Dec 14, 2017 15:34
--- NOTE | 2017-12-14 15:35 | HHI.FF ---
Face to Face Verification Diagnosis: (1) Opioid overdose (2) Altered mental status Physical Therapy Order: Evaluate and Treat Occupational Therapy Order: Evaluate and Treat Home Health Nursing Order: Medical education Nursing assessment with vital signs I have seen patient Antonio Mcgovern on 12/14/17. My clinical findings support the need for the requested home health care services because: Ltd mobility - disease progression Deconditioned w/ increased weakness I certify that my clinical findings support that this patient is homebound because: Unsteady gait/balance Unsafe to leave home unassisted Maile Nunez MD Dec 14, 2017 15:35
--- NOTE | 2017-12-14 15:37 | HHI.DS ---
Discharge Summary Admission Date December 10, 2017 at 20:58 Discharge Date: Dec 17, 2017 Admitting Diagnosis Opioid overdose, AMS (1) Weakness ICD Code: R53.1 - Weakness (2) Altered mental status ICD Code: R41.82 - Altered mental status, unspecified Status: Acute (3) Opioid overdose ICD Code: T40.2X1A - Poisoning by other opioids, accidental (unintentional), initial encounter Status: Acute Procedures See below Brief History - From Admission This is a 77-year-old male with a history of chronic pain and dementia for which she takes chronic MS Contin. He was reportedly admitted to outside hospital within the last week for a narcotic overdose and was discharged yesterday. He represents by EMS for altered mental status. Apparently he was given additional narcotics at his facility where he resides today. In the emergency department he was given Narcan IV and he awoke and his mental status improved significantly. However, he is on extended release morphine and became somnolent again after the Narcan which required additional doses of Narcan to keep him awake. He was placed on a Narcan infusion. On my arrival to evaluate patient, he is somnolent. He will arouse to voice, but does not answer any questions. He does mumble yes or no at times, but is very poor historian and does not interact with a full history and physical. He very vigorously protect his airway with a very intact cough and gag. He is on nasal cannula oxygen. No additional information is available from the patient due to his mental status. Review of systems is essentially unobtainable. CBC/BMP: 12/14/17 0524 12/14/17 0524 Significant Findings Laboratory Tests Test 12/12/17 06:40 12/13/17 05:27 12/14/17 05:24 Red Blood Count 3.74 MIL/MM3 (4.50-5.90) 3.61 MIL/MM3 (4.50-5.90) 3.86 MIL/MM3 (4.50-5.90) Hemoglobin 12.8 GM/DL (13.0-17.0) 12.3 GM/DL (13.0-17.0) Hematocrit 37.4 % (39.0-51.0) 36.0 % (39.0-51.0) 38.0 % (39.0-51.0) Mean Corpuscular Volume 100.1 FL (80.0-100.0) Mean Corpuscular Hemoglobin 34.2 PG (27.0-34.0) Blood Urea Nitrogen 6 MG/DL (7-18) Potassium Level 3.2 MEQ/L (3.5-5.1) Random Glucose 62 MG/DL (74-106) Estimat Glomerular Filtration Rate 65 ML/MIN (>89) PE at Discharge GENERAL: This is a well-nourished, well-developed patient, in no apparent distress. CARDIOVASCULAR: RRR, no gallops, or rubs. RESPIRATORY: Fair air entry bilaterally. No W, R, or R GASTROINTESTINAL: Abdomen soft, non-tender, nondistended. Positive bowel sounds MUSCULOSKELETAL: Extremities without clubbing, cyanosis, or edema. Pedal pulses appreciated NEUROLOGICAL: Awake and alert. Moves all extremity. Normal speech.no focal neurological deficit Hospital Course Assessment: 77-year-old male with chronic narcotic dependence and chronic pain syndrome with comorbid dementia who was recently admitted for opiate overdose to outside hospital and now presents with recurrent opiate overdose. Given that the patient has comorbid dementia, and given the patient's age, combined with the fact that now he has had 2 episodes of clinical opiate overdose/ toxicity, opiate narcotic medication is contraindicated in this patient. He is having significant side effects which at this point include respiratory depression requiring inpatient hospitalization as well as significant encephalopathy, and given his GFR 58 with a creatinine of 1.2, which would give him stage III CKD, titrating extended release morphine comes with significant risk. it is mostly unsafe to continue this patient's opiate medication, and we should consider strongly non-opiate pharmacologic interventions for his pain . I think he should see an outpatient pain specialist with the target of addressing non-opiate modalities of pain control. For his acute admission, he requires naloxone infusion to maintain respiratory status and prevent hypoxic respiratory failure and is thus critically ill requiring immediate intervention to prevent respiratory failure. A/P Opiate Overdose Acute Toxic Encephalopathy Opiate Dependence Chronic pain syndrome Stage III CKD possible [id number] kidney disease superimposed on stage III CKD Dementia Acute respiratory depression secondary to opiate overdose Hypertension COPD Plan: Discontinued Narcan infusion 1730 urine drug screen Consider Ofirmev 1 g every 6 hours as needed 48 hours for pain control frequent neuro checks advance diet mechanical soft regular diet Patient passed bedside swallow restart home amlodipine restart spiriva and nebs Hold home gabapentin discontinue home opiates. discontinue home baclofen Would recommend the following interventions for his chronic pain, as he clinically begins to improve: - restart home gabapentin at 300mg po TID, but increase slowly every 48h to a maximum target of 1800mg/day (900 TID) if tolerated without side effects - Tylenol scheduled for adjuvant pain control, no more than 3gm/day divided q6h or q4h. - avoid NSAIDS given CKD - would recommend discontinuing baclofen as this may compound sedation and worsen respiratory distress - would recommend using tizanidine starting at 2mg po BID and slowly increasing for muscle relaxation as this has chronic pain properties. - if hypertension is a problem, clonidine 0.2mg po BID or TID would be appropriate and can have chronic pain properties as well. This will also help with withdraw symptoms - tramadol 50mg po q8h may be an appropriate alternative for this patient's chronic pain, if he does not have a history of seizure disorder. To manage opiate withdraw symptoms: - clonidine 0.2mg TID - imodium prn for abdominal cramping or diarrhea [id number] encounter performed with the patient on discharge day, as well as physical exam, summary of hospitalization course and postdischarge plan has been D/W the patient. D/W nurse and PT OT they recommend home health with 24-hour supervision D/W registered nurse hh case manager. Discharge medications reviewed and printed and signed, post discharge follow up visit with PCP and other specialist as well as Brief hospital course and discharge summary has been placed. Pt Condition on Discharge: Fair Discharge Disposition: Discharge to SNF Discharge Time: > 30 minutes Discharge Instructions DIET: Follow Instructions for: Heart Healthy Diet, Diabetic Diet Activities you can perform: See Additionl Instruction Other Activity Instructions: per PT Continued Medications: Albuterol 18 GM Inh (Ventolin Hfa 18 GM Inh) 90 Mcg/Act Aer 2 PUFF INH Q4-6H PRN for SHORTNESS OF BREATH, #1 INHALER 0 Refills Amiodarone (Amiodarone) 200 Mg Tab 200 MG PO BID for Regulate Heart Beat, #60 TAB 0 Refills Amlodipine (Amlodipine) 5 Mg Tab 5 MG PO DAILY for Blood Pressure Management, #30 TAB 0 Refills Atorvastatin (Atorvastatin) 10 Mg Tab 10 MG PO HS for Cholesterol Management, #30 TAB 0 Refills Budesonide-Formoterol Inh (Symbicort Inh) 160-4.5 Mcg/Act Aero 2 PUFF INH Q12HR, #1 INHALER 0 Refills Docusate Sodium (Colace) 100 Mg Capsule 100 MG PO BID for Prevent Constipation, #60 CAP 0 Refills Furosemide (Furosemide) 40 Mg Tab 40 MG PO BID, #60 TAB 0 Refills Gabapentin (Gabapentin) 300 Mg Cap 300 MG PO BID, #60 CAP 0 Refills Meloxicam (Meloxicam) 15 Mg Tab 15 MG PO DAILY for Arthritis Pain, #30 TAB 0 Refills Memantine (Namenda) 10 Mg Tab 10 MG PO DAILY for Alzheimer Disease, #30 TAB 0 Refills Nitroglycerin SL (Nitroglycerin SL) 0.4 Mg Subl 0.4 MG SL DIRECTED PRN for CHEST PAIN, #100 TAB.SL 0 Refills ONE TABLET UNDER THE TONGUE NEEDED FOR CHEST PAIN, MAY REPEAT EVERY FIVE MINUTES FOR A TOTAL OF 3 DOSES OR CALL 911 IF NO RELIEF Polyethylene Glycol 3350 Powder (Miralax Powder) 17 Gm Powd 17 GM PO DAILY for Constipation, #1 CAN 0 Refills Mix and dissolve one measuring cap-ful (17 grams) in water or juice. Tiotropium Inh (Spiriva Handihaler) 18 Mcg Cap 18 MCG INH DAILY for COPD, #30 CAP 0 Refills 1 capsule = 18 mcg Maile Nunez MD Dec 14, 2017 15:37
[2017-12-14] MEDS: ATORVASTATIN 10 MG TAB PO SCH (20:19)
[2017-12-14] MEDS: ENOXAPARIN SODIUM 40 MG/0.4 ML SYRINGE SQ SCH (23:42)
[2017-12-15] MEDS: INSULIN NovoLIN REGULAR SUPPLEMENTAL SCALE SQ SCH ×5 (03:00→21:00)
[2017-12-15] MEDS: ACETAMINOPHEN 325 MG TAB PO PRN ×4 (03:51→19:43)
[2017-12-15] MEDS: CHLORHEXIDINE GLUCONATE 2 % 1 PACK (2 CLOTHS) TOP SCH (04:00)
[2017-12-15 04:50] VITALS: BP 118/62; PULSE 69; RESP 20; TEMP 98; O2SAT 96
[2017-12-15] MEDS: IBUPROFEN 400 MG TAB PO PRN ×4 (05:39→22:13)
[2017-12-15 08:00] VITALS: BP 133/63; PULSE 73; PULSE 76; RESP 17; TEMP 97.6; O2SAT 97
[2017-12-15 08:13] LABS: HEMATOCRIT 37.8 % (39.0-51.0); HEMOGLOBIN 12.9 GM/DL (13.0-17.0); MEAN CELL VOLUME 99.5 FL (80.0-100.0); MEAN CORPUSCULAR HEMOGLOBIN 34.1 PG (27.0-34.0); MEAN CORPUSCULAR HGB CONC 34.3 % (32.0-36.0); MEAN PLATELET VOLUME 8.8 FL (7.0-11.0); PLATELET COUNT 282 TH/MM3 (150-450); WHITE BLOOD COUNT 6.7 TH/MM3 (4.0-11.0)
[2017-12-15 08:35] LABS: BICARBONATE 24.6 MEQ/L (21.0-32.0); CALCIUM 8.8 MG/DL (8.5-10.1); CREATININE 1.28 MG/DL (0.60-1.30)
[2017-12-15] MEDS: FUROSEMIDE 40 MG TAB PO SCH ×2 (08:36→21:17)
[2017-12-15] MEDS: amLODIPine BESYLATE 5 MG TAB PO SCH (08:36)
[2017-12-15] MEDS: DOCUSATE SODIUM 50 MG/SENNA 8.6 MG TAB PO SCH ×2 (08:36→21:17)
[2017-12-15] MEDS: MEMANTINE HCL 10 MG TAB PO SCH (08:37)
[2017-12-15] MEDS: AMIODARONE 200 MG TAB PO SCH ×2 (08:37→21:17)
[2017-12-15] MEDS: TIOTROPIUM BROMIDE 18 MCG INH INH SCH (08:42)
[2017-12-15] MEDS: BUDESONIDE-FORMOTEROL 160/4.5 MCG INHALER INH SCH ×2 (08:43→21:17)
[2017-12-15] MEDS ORDERED: POTA10TA2 PO (10:54)
[2017-12-15] MEDS ORDERED: POTASSIUM CHLORIDE 10 MEQ CONTROLLED RELEASE TAB PO ONE (11:15)
[2017-12-15 12:00] VITALS: BP 145/68; PULSE 75; PULSE 80; RESP 20; TEMP 98.1; O2SAT 94
--- NOTE | 2017-12-15 13:28 | HHI.PR ---
Subjective Remarks Resting comfortably in bed No event overnight Denied chest and or short of breath No fever or chills Objective Vitals Vital Signs Date Time Temp Pulse Resp B/P (MAP) Pulse Ox O2 Delivery O2 Flow Rate FiO2 12/15/17 12:00 98.1 75 20 145/68 (93) 94 12/15/17 08:00 97.6 76 17 133/63 (86) 97 12/15/17 04:50 98.0 69 20 118/62 (80) 96 12/14/17 23:30 98.0 75 16 120/59 (79) 98 12/14/17 20:45 98.0 74 17 122/56 (78) 97 12/14/17 19:49 75 12/14/17 17:43 18 12/14/17 16:55 18 12/14/17 16:00 98.4 75 18 123/55 (77) 96 12/14/17 16:00 74 12/14/17 15:52 2.00 I/O 12/14/17 12/14/17 12/14/17 12/15/17 12/15/17 12/15/17 07:00 15:00 23:00 07:00 15:00 23:00 Intake Total 700 ml 650 ml Output Total 500 ml 0 ml 600 ml Balance -500 ml 700 ml 50 ml Intake Oral 700 ml 650 ml Output Urine Total 500 ml 0 ml 600 ml # Bowel Movements 0 0 Result Diagram: 12/15/17 0642 12/15/17 0624 Objective Remarks GENERAL: This is a well-nourished, well-developed patient, in no apparent distress. CARDIOVASCULAR: RRR, no gallops, or rubs. RESPIRATORY: Fair air entry bilaterally. No W, R, or R GASTROINTESTINAL: Abdomen soft, non-tender, nondistended. Positive bowel sounds MUSCULOSKELETAL: Extremities without clubbing, cyanosis, or edema. Pedal pulses appreciated NEUROLOGICAL: Awake and alert. Moves all extremity. Normal speech.no focal neurological deficit Procedures See below A/P Problem List: (1) Weakness ICD Code: R53.1 - Weakness (2) Altered mental status ICD Code: R41.82 - Altered mental status, unspecified Status: Acute (3) Opioid overdose ICD Code: T40.2X1A - Poisoning by other opioids, accidental (unintentional), initial encounter Status: Acute Assessment and Plan Assessment: 77-year-old male with chronic narcotic dependence and chronic pain syndrome with comorbid dementia who was recently admitted for opiate overdose to outside hospital and now presents with recurrent opiate overdose. Given that the patient has comorbid dementia, and given the patient's age, combined with the fact that now he has had 2 episodes of clinical opiate overdose/ toxicity, opiate narcotic medication is contraindicated in this patient. He is having significant side effects which at this point include respiratory depression requiring inpatient hospitalization as well as significant encephalopathy, and given his GFR 58 with a creatinine of 1.2, which would give him stage III CKD, titrating extended release morphine comes with significant risk. it is mostly unsafe to continue this patient's opiate medication, and we should consider strongly non-opiate pharmacologic interventions for his pain . I think he should see an outpatient pain specialist with the target of addressing non-opiate modalities of pain control. For his acute admission, he requires naloxone infusion to maintain respiratory status and prevent hypoxic respiratory failure and is thus critically ill requiring immediate intervention to prevent respiratory failure. 12/12: Continue monitoring off opioid, will add ibuprofen with gabapentin, monitor closely for any signs of withdrawal 12/13: Wean down oxygen, start PT OT, will continue monitoring if stable will discharge in a.m., patient will need referral for pain management clinic 12/14: Stable, will check O2 walking test, PT OT to [facility] for discharge recommendation they recommended home health with 24-hour supervision, will discharge patient today if pass O2 walking test 12/15: PT recommended rehab, patient passed walking test, discussed with correctional case manager awaiting available bed in SNF, [id number] has been signed A/P Opiate Overdose Acute Toxic Encephalopathy Opiate Dependence Chronic pain syndrome Stage III CKD possible oznqs-hf-dunbrva kidney disease superimposed on stage III CKD Dementia Acute respiratory depression secondary to opiate overdose Hypertension COPD Plan: Discontinued Narcan infusion 1729 urine drug screen Consider Ofirmev 1 g every 6 hours as needed 48 hours for pain control frequent neuro checks advance diet mechanical soft regular diet Patient passed bedside swallow restart home amlodipine restart spiriva and nebs Hold home gabapentin discontinue home opiates. discontinue home baclofen Would recommend the following interventions for his chronic pain, as he clinically begins to improve: - restart home gabapentin at 300mg po TID, but increase slowly every 48h to a maximum target of 1800mg/day (900 TID) if tolerated without side effects - Tylenol scheduled for adjuvant pain control, no more than 3gm/day divided q6h or q4h. - avoid NSAIDS given CKD - would recommend discontinuing baclofen as this may compound sedation and worsen respiratory distress - would recommend using tizanidine starting at 2mg po BID and slowly increasing for muscle relaxation as this has chronic pain properties. - if hypertension is a problem, clonidine 0.2mg po BID or TID would be appropriate and can have chronic pain properties as well. This will also help with withdraw symptoms - tramadol 50mg po q8h may be an appropriate alternative for this patient's chronic pain, if he does not have a history of seizure disorder. To manage opiate withdraw symptoms: - clonidine 0.2mg TID - imodium prn for abdominal cramping or diarrhea Discharge Planning Awaiting place and SNF Problem Qualifiers (1) Altered mental status: Qualified Codes: R41.82 - Altered mental status, unspecified (2) Opioid overdose: Qualified Codes: T40.2X1A - Poisoning by other opioids, accidental ( unintentional), initial encounter Maile Nunez MD Dec 15, 2017 13:28
[2017-12-15 16:00] VITALS: PULSE 71
[2017-12-15 19:50] VITALS: PULSE 64
[2017-12-15 20:45] VITALS: BP 120/69; PULSE 69; RESP 18; TEMP 98.8; O2SAT 98
[2017-12-15] MEDS: ATORVASTATIN 10 MG TAB PO SCH (21:17)
[2017-12-15] MEDS: ENOXAPARIN SODIUM 40 MG/0.4 ML SYRINGE SQ SCH (21:18)
[2017-12-16] VITALS (9 sets, daily range): BP systolic 125–142; BP diastolic 58–70; PULSE 64–76; RESP 17–20; TEMP 97.1–98; O2SAT 96–98
[2017-12-16] MEDS: ACETAMINOPHEN 325 MG TAB PO PRN ×5 (01:01→18:12)
[2017-12-16] MEDS: INSULIN NovoLIN REGULAR SUPPLEMENTAL SCALE SQ SCH ×5 (03:00→21:00)
[2017-12-16] MEDS: CHLORHEXIDINE GLUCONATE 2 % 1 PACK (2 CLOTHS) TOP SCH (04:00)
[2017-12-16] MEDS: IBUPROFEN 400 MG TAB PO PRN ×4 (04:11→22:21)
[2017-12-16 05:58] LABS: HEMATOCRIT 39.3 % (39.0-51.0); HEMOGLOBIN 13.2 GM/DL (13.0-17.0); MEAN CELL VOLUME 98.9 FL (80.0-100.0); MEAN CORPUSCULAR HEMOGLOBIN 33.2 PG (27.0-34.0); MEAN CORPUSCULAR HGB CONC 33.6 % (32.0-36.0); MEAN PLATELET VOLUME 8.4 FL (7.0-11.0); PLATELET COUNT 318 TH/MM3 (150-450); RED BLOOD COUNT 3.97 MIL/MM3 (4.50-5.90); RED CELL DISTRIBUTION WIDTH 13.8 % (11.6-17.2); WHITE BLOOD COUNT 6.8 TH/MM3 (4.0-11.0)
[2017-12-16 06:25] LABS: BICARBONATE 24.7 MEQ/L (21.0-32.0); CALCIUM 9.2 MG/DL (8.5-10.1); CREATININE 1.28 MG/DL (0.60-1.30)
[2017-12-16] MEDS: MEMANTINE HCL 10 MG TAB PO SCH (08:04)
[2017-12-16] MEDS: amLODIPine BESYLATE 5 MG TAB PO SCH (08:04)
[2017-12-16] MEDS: AMIODARONE 200 MG TAB PO SCH ×2 (08:04→22:20)
[2017-12-16] MEDS: FUROSEMIDE 40 MG TAB PO SCH ×2 (08:04→22:20)
[2017-12-16] MEDS: DOCUSATE SODIUM 50 MG/SENNA 8.6 MG TAB PO SCH ×2 (08:04→22:20)
[2017-12-16] MEDS: BUDESONIDE-FORMOTEROL 160/4.5 MCG INHALER INH SCH ×2 (08:05→22:21)
[2017-12-16] MEDS: TIOTROPIUM BROMIDE 18 MCG INH INH SCH (08:05)
--- NOTE | 2017-12-16 10:54 | HHI.PR ---
Objective Vitals Vital Signs Date Time Temp Pulse Resp B/P (MAP) Pulse Ox O2 Delivery O2 Flow Rate FiO2 12/16/17 10:44 64 12/16/17 07:45 97.1 66 20 142/65 (90) 96 12/16/17 04:20 98.0 69 19 130/68 (88) 96 12/16/17 00:00 98.0 69 17 125/70 (88) 98 12/15/17 20:45 98.8 69 18 120/69 (86) 98 12/15/17 19:50 64 12/15/17 16:00 71 12/15/17 15:58 18 12/15/17 12:27 20 12/15/17 12:00 98.1 75 20 145/68 (93) 94 12/15/17 12:00 80 I/O 12/15/17 12/15/17 12/15/17 12/16/17 12/16/17 12/16/17 07:00 15:00 23:00 07:00 15:00 23:00 Intake Total 650 ml 575 ml 600 ml Output Total 600 ml 800 ml 1025 ml Balance 50 ml -225 ml -425 ml Intake Oral 650 ml 575 ml 600 ml Output Urine Total 600 ml 800 ml 1025 ml # Bowel Movements 0 0 1 Result Diagram: 12/16/17 0544 12/16/17 05 Objective Remarks GENERAL: This is a well-nourished, well-developed patient, in no apparent distress. CARDIOVASCULAR: RRR, no gallops, or rubs. RESPIRATORY: Fair air entry bilaterally. No W, R, or R GASTROINTESTINAL: Abdomen soft, non-tender, nondistended. Positive bowel sounds MUSCULOSKELETAL: Extremities without clubbing, cyanosis, or edema. Pedal pulses appreciated NEUROLOGICAL: Awake and alert. Moves all extremity. Normal speech.no focal neurological deficit Procedures See below A/P Problem List: (1) Weakness ICD Code: R53.1 - Weakness (2) Altered mental status ICD Code: R41.82 - Altered mental status, unspecified Status: Acute (3) Opioid overdose ICD Code: T40.2X1A - Poisoning by other opioids, accidental (unintentional), initial encounter Status: Acute Assessment and Plan Assessment: 77-year-old male with chronic narcotic dependence and chronic pain syndrome with comorbid dementia who was recently admitted for opiate overdose to outside hospital and now presents with recurrent opiate overdose. Given that the patient has comorbid dementia, and given the patient's age, combined with the fact that now he has had 2 episodes of clinical opiate overdose/ toxicity, opiate narcotic medication is contraindicated in this patient. He is having significant side effects which at this point include respiratory depression requiring inpatient hospitalization as well as significant encephalopathy, and given his GFR 58 with a creatinine of 1.2, which would give him stage III CKD, titrating extended release morphine comes with significant risk. it is mostly unsafe to continue this patient's opiate medication, and we should consider strongly non-opiate pharmacologic interventions for his pain . I think he should see an outpatient pain specialist with the target of addressing non-opiate modalities of pain control. For his acute admission, he requires naloxone infusion to maintain respiratory status and prevent hypoxic respiratory failure and is thus critically ill requiring immediate intervention to prevent respiratory failure. 12/12: Continue monitoring off opioid, will add ibuprofen with gabapentin, monitor closely for any signs of withdrawal 12/13: Wean down oxygen, start PT OT, will continue monitoring if stable will discharge in a.m., patient will need referral for pain management clinic 12/14: Stable, will check O2 walking test, PT OT to eval for discharge recommendation they recommended home health with 24-hour supervision, will discharge patient today if pass O2 walking test 12/15: PT recommended rehab, patient passed walking test, discussed with family service caseworker awaiting available bed in SNF, [id number] has been signed A/P Opiate Overdose Acute Toxic Encephalopathy Opiate Dependence Chronic pain syndrome Stage III CKD possible [id number] kidney disease superimposed on stage III CKD Dementia Acute respiratory depression secondary to opiate overdose Hypertension COPD Plan: Discontinued Narcan infusion 1729 urine drug screen Consider Ofirmev 1 g every 6 hours as needed 48 hours for pain control frequent neuro checks advance diet mechanical soft regular diet Patient passed bedside swallow restart home amlodipine restart spiriva and nebs Hold home gabapentin discontinue home opiates. discontinue home baclofen Would recommend the following interventions for his chronic pain, as he clinically begins to improve: - restart home gabapentin at 300mg po TID, but increase slowly every 48h to a maximum target of 1800mg/day (900 TID) if tolerated without side effects - Tylenol scheduled for adjuvant pain control, no more than 3gm/day divided q6h or q4h. - avoid NSAIDS given CKD - would recommend discontinuing baclofen as this may compound sedation and worsen respiratory distress - would recommend using tizanidine starting at 2mg po BID and slowly increasing for muscle relaxation as this has chronic pain properties. - if hypertension is a problem, clonidine 0.2mg po BID or TID would be appropriate and can have chronic pain properties as well. This will also help with withdraw symptoms - tramadol 50mg po q8h may be an appropriate alternative for this patient's chronic pain, if he does not have a history of seizure disorder. To manage opiate withdraw symptoms: - clonidine 0.2mg TID - imodium prn for abdominal cramping or diarrhea Discharge Planning Awaiting place and SNF Problem Qualifiers (1) Altered mental status: Qualified Codes: R41.82 - Altered mental status, unspecified (2) Opioid overdose: Qualified Codes: T40.2X1A - Poisoning by other opioids, accidental ( unintentional), initial encounter Maile Nunez MD Dec 16, 2017 10:54
--- NOTE | 2017-12-16 13:06 | HHI.PR ---
Subjective Remarks Doing well no acute issue Still waiting for insurance authorization to be transferred to [facility] Objective Vitals Vital Signs Date Time Temp Pulse Resp B/P (MAP) Pulse Ox O2 Delivery O2 Flow Rate FiO2 12/16/17 11:54 97.9 68 20 133/60 (84) 98 12/16/17 10:44 64 12/16/17 07:45 97.1 66 20 142/65 (90) 96 12/16/17 04:20 98.0 69 19 130/68 (88) 96 12/16/17 00:00 98.0 69 17 125/70 (88) 98 12/15/17 20:45 98.8 69 18 120/69 (86) 98 12/15/17 19:50 64 12/15/17 16:00 71 12/15/17 15:58 18 I/O 12/15/17 12/15/17 12/15/17 12/16/17 12/16/17 12/16/17 07:00 15:00 23:00 07:00 15:00 23:00 Intake Total 650 ml 575 ml 600 ml Output Total 600 ml 800 ml 1025 ml Balance 50 ml -225 ml -425 ml Intake Oral 650 ml 575 ml 600 ml Output Urine Total 600 ml 800 ml 1025 ml # Bowel Movements 0 0 1 Result Diagram: 12/16/17 0544 12/16/17 0544 Objective Remarks GENERAL: This is a well-nourished, well-developed patient, in no apparent distress. CARDIOVASCULAR: RRR, no gallops, or rubs. RESPIRATORY: Fair air entry bilaterally. No W, R, or R GASTROINTESTINAL: Abdomen soft, non-tender, nondistended. Positive bowel sounds MUSCULOSKELETAL: Extremities without clubbing, cyanosis, or edema. Pedal pulses appreciated NEUROLOGICAL: Awake and alert. Moves all extremity. Normal speech.no focal neurological deficit Procedures See below A/P Problem List: (1) Weakness ICD Code: R53.1 - Weakness (2) Altered mental status ICD Code: R41.82 - Altered mental status, unspecified Status: Acute (3) Opioid overdose ICD Code: T40.2X1A - Poisoning by other opioids, accidental (unintentional), initial encounter Status: Acute Assessment and Plan Assessment: 77-year-old male with chronic narcotic dependence and chronic pain syndrome with comorbid dementia who was recently admitted for opiate overdose to outside hospital and now presents with recurrent opiate overdose. Given that the patient has comorbid dementia, and given the patient's age, combined with the fact that now he has had 2 episodes of clinical opiate overdose/ toxicity, opiate narcotic medication is contraindicated in this patient. He is having significant side effects which at this point include respiratory depression requiring inpatient hospitalization as well as significant encephalopathy, and given his GFR 58 with a creatinine of 1.2, which would give him stage III CKD, titrating extended release morphine comes with significant risk. it is mostly unsafe to continue this patient's opiate medication, and we should consider strongly non-opiate pharmacologic interventions for his pain . I think he should see an outpatient pain specialist with the target of addressing non-opiate modalities of pain control. For his acute admission, he requires naloxone infusion to maintain respiratory status and prevent hypoxic respiratory failure and is thus critically ill requiring immediate intervention to prevent respiratory failure. 12/12: Continue monitoring off opioid, will add ibuprofen with gabapentin, monitor closely for any signs of withdrawal 12/13: Wean down oxygen, start PT OT, will continue monitoring if stable will discharge in a.m., patient will need referral for pain management clinic 12/14: Stable, will check O2 walking test, PT OT to eval for discharge recommendation they recommended home health with 24-hour supervision, will discharge patient today if pass O2 walking test 12/15: PT recommended rehab, patient passed walking test, discussed with disease case manager rn awaiting available bed in SNF, [id number] has been signed 12/16: Stable, awaiting insurance authorization to be transferred to SNF A/P Opiate Overdose Acute Toxic Encephalopathy Opiate Dependence Chronic pain syndrome Stage III CKD possible [id number] kidney disease superimposed on stage III CKD Dementia Acute respiratory depression secondary to opiate overdose Hypertension COPD Plan: Discontinued Narcan infusion 1729 urine drug screen Consider Ofirmev 1 g every 6 hours as needed 48 hours for pain control frequent neuro checks advance diet mechanical soft regular diet Patient passed bedside swallow restart home amlodipine restart spiriva and nebs Hold home gabapentin discontinue home opiates. discontinue home baclofen Would recommend the following interventions for his chronic pain, as he clinically begins to improve: - restart home gabapentin at 300mg po TID, but increase slowly every 48h to a maximum target of 1800mg/day (900 TID) if tolerated without side effects - Tylenol scheduled for adjuvant pain control, no more than 3gm/day divided q6h or q4h. - avoid NSAIDS given CKD - would recommend discontinuing baclofen as this may compound sedation and worsen respiratory distress - would recommend using tizanidine starting at 2mg po BID and slowly increasing for muscle relaxation as this has chronic pain properties. - if hypertension is a problem, clonidine 0.2mg po BID or TID would be appropriate and can have chronic pain properties as well. This will also help with withdraw symptoms - tramadol 50mg po q8h may be an appropriate alternative for this patient's chronic pain, if he does not have a history of seizure disorder. To manage opiate withdraw symptoms: - clonidine 0.2mg TID - imodium prn for abdominal cramping or diarrhea Discharge Planning Awaiting place and SNF Problem Qualifiers (1) Altered mental status: Qualified Codes: R41.82 - Altered mental status, unspecified (2) Opioid overdose: Qualified Codes: T40.2X1A - Poisoning by other opioids, accidental ( unintentional), initial encounter Maile Nunez MD Dec 16, 2017 13:06
[2017-12-16] MEDS: ATORVASTATIN 10 MG TAB PO SCH (22:20)
[2017-12-16] MEDS: ENOXAPARIN SODIUM 40 MG/0.4 ML SYRINGE SQ SCH (22:24)
[2017-12-17] VITALS: BP 154/71; PULSE 74; RESP 18; TEMP 98.1; O2SAT 95
[2017-12-17 00:30] VITALS: PULSE 68
[2017-12-17] MEDS: INSULIN NovoLIN REGULAR SUPPLEMENTAL SCALE SQ SCH (03:00)
[2017-12-17] MEDS: IBUPROFEN 400 MG TAB PO PRN ×2 (03:33→10:27)
[2017-12-17 04:00] VITALS: BP 134/63; PULSE 69; RESP 18; TEMP 98; O2SAT 95
[2017-12-17] MEDS: CHLORHEXIDINE GLUCONATE 2 % 1 PACK (2 CLOTHS) TOP SCH (04:00)
[2017-12-17 04:30] VITALS: PULSE 70
[2017-12-17 05:32] LABS: HEMATOCRIT 38.3 % (39.0-51.0); HEMOGLOBIN 13.1 GM/DL (13.0-17.0); MEAN CELL VOLUME 98.4 FL (80.0-100.0); MEAN CORPUSCULAR HEMOGLOBIN 33.7 PG (27.0-34.0); MEAN CORPUSCULAR HGB CONC 34.2 % (32.0-36.0); MEAN PLATELET VOLUME 8.4 FL (7.0-11.0); PLATELET COUNT 283 TH/MM3 (150-450); RED BLOOD COUNT 3.89 MIL/MM3 (4.50-5.90); RED CELL DISTRIBUTION WIDTH 13.5 % (11.6-17.2); WHITE BLOOD COUNT 6.2 TH/MM3 (4.0-11.0)
[2017-12-17 05:55] LABS: CALCIUM 9.8 MG/DL (8.5-10.1); CREATININE 1.32 MG/DL (0.60-1.30)
[2017-12-17 07:58] VITALS: BP 118/56; PULSE 76; RESP 18; TEMP 97.7; O2SAT 97
[2017-12-17] MEDS: MEMANTINE HCL 10 MG TAB PO SCH (08:38)
[2017-12-17] MEDS: FUROSEMIDE 40 MG TAB PO SCH (08:38)
[2017-12-17] MEDS: AMIODARONE 200 MG TAB PO SCH (08:38)
[2017-12-17] MEDS: BUDESONIDE-FORMOTEROL 160/4.5 MCG INHALER INH SCH (08:38)
[2017-12-17] MEDS: amLODIPine BESYLATE 5 MG TAB PO SCH (08:38)
[2017-12-17] MEDS: DOCUSATE SODIUM 50 MG/SENNA 8.6 MG TAB PO SCH (08:38)
[2017-12-17] MEDS: TIOTROPIUM BROMIDE 18 MCG INH INH SCH (08:39)
[2017-12-17 10:15] VITALS: O2SAT 97
== END 2017-12-17 10:50 | DRG 917 ==
LOC: NEPC 18:42 → NEDA 20:58 → HIMN 23:25 → N05B 12-12 19:20
PROVIDERS: ADMIT Hospitalist; ATTEND Hospitalist
DX: T40.2X1A Poisoning by other opioids, accidental (unintentional), initial encounter (principal); G92 Toxic encephalopathy; I48.91 Unspecified atrial fibrillation; F03.90 Unspecified dementia, unspecified severity, without behavioral disturbance, psychotic disturbance, mood disturbance, and anxiety; J44.9 Chronic obstructive pulmonary disease, unspecified; F11.20 Opioid dependence, uncomplicated; G89.4 Chronic pain syndrome; N18.3 Chronic kidney disease, stage 3 (moderate); I12.9 Hypertensive chronic kidney disease with stage 1 through stage 4 chronic kidney disease, or unspecified chronic kidney disease; R53.1 Weakness; I25.2 Old myocardial infarction; Z85.118 Personal history of other malignant neoplasm of bronchus and lung
CPT/HCPCS: 80048; 80053; 80307; 81001; 82948; 84443; 85025; 85027; 85610; 85730; 87641; 93005; 94150; 94618; 94640; 94664; 94667; 94668; 96374; 96376; J1650; J2310; J3480; J7060